=== PATIENT | female | born 1930 | race Caucasian/White ===

== ENCOUNTER 2017-04-16 13:32 | Outpatient (CLI) | payer MEDICARE ==
--- NOTE | 2017-04-18 16:10 | PET ---
NUCLEAR MEDICINE FDG PET CT WHOLE BODY: (Positron Emission Tomography) DATE: 04/16/17 HISTORY: 86-year-old female with left parotid tail mass, right thyroid nodule, effacement of left lateral pha ryngeal recess, and a right upper lobe pulmonary nodule. COMPARISON: Neck CT of 04/13/[address] of 04/13/17 at [facility]. TECHNIQUE: IV injection F-18 Fluorodeoxyglucose (FDG) dose: 12.8 mCi Whole body PET and attenuation-correction CT performed from skull base to proximal thighs. FINDINGS: SUV (standard uptake value) numbers given are maximum SUV's: There is no increased FDG localization in the left parotid tail, left nasopharynx at the fossa of Ro senmuller (now apparently representing apposition of adjacent mucosal surfaces and/or secretions), r ight thyroid nodule, or in the 1 cm pulmonary nodule in the right upper lobe. There is diffusely inc reased FDG uptake throughout the colon. There is no suspicious FDG localization in the abdominal and pelvic cavity otherwise, or anywhere in the chest or neck. There are significant bilateral pleural effusions, right greater than left. Cardiomegaly and pericardial effusion. Calcified gallstone. IMPRESSION: 1. No FDG-avid mass. 2. Diffusely increased FDG uptake throughout the entire colon. One possibility would be a diffuse c olitis. Clinical correlation is recommended. 3. Bilateral pleural effusions, right greater than left. 4. Cholelithiasis. 5. Cardiomegaly and small pericardial effusion. KORY R POS: [facility]
== END 2017-04-16 13:33 | disposition home or self-care (01) ==
LOC: PET 13:32
PROVIDERS: ATTEND Internal Medicine Medical Oncology
DX: C80.1 Malignant (primary) neoplasm, unspecified (principal); C77.0 Secondary and unspecified malignant neoplasm of lymph nodes of head, face and neck; C78.00 Secondary malignant neoplasm of unspecified lung
CPT/HCPCS: 78815; A9552

== ENCOUNTER 2017-06-09 12:55 | Outpatient (CLI) | payer MEDICARE ==
--- NOTE | 2017-06-09 15:09 | RAD ---
PA AND LATERAL VIEWS OF CHEST: Date: 06/09/17 HISTORY: Dyspnea. FINDINGS: The heart size is borderline. The aorta is tortuous. There is moderate size right pleural effusion wi th adjacent infiltrate/atelectatic change. No pulmonary edema, or pneumothoraces are seen. IMPRESSION: Right-sided pleural effusion. POS: [facility]
== END 2017-06-09 12:56 | disposition home or self-care (01) ==
LOC: RAD 12:55
PROVIDERS: ATTEND Internal Medicine Critical Care Medicine
DX: R06.00 Dyspnea, unspecified (principal); J90 Pleural effusion, not elsewhere classified
CPT/HCPCS: 71020

== ENCOUNTER 2017-06-23 11:24 | Outpatient (CLI) | payer MEDICARE ==
[2017-06-23 12:20] LABS: Anion Gap 13 mmol/L (10-20); BUN (Urea Nitrogen) 43 mg/dL (9.8-20.1); Calc. Creatinine Clearance 0 mL/min (70-130); Calcium 10.8 mg/dL (7.8-10.44); Carbon Dioxide 33 mmol/L (23-31); Chloride 90 mmol/L (98-107); Estimated GFR-MDRD 25
--- NOTE | 2017-06-23 12:43 | RAD ---
RADIOGRAPH CHEST 2 VIEWS: Date: 06-23-17 Time: 12:13 p.m. HISTORY: 86-year-old female with dyspnea and I50.23, chronic diastolic heart failure. COMPARISON: 06-09-17 FINDINGS: The previously demonstrated right pleural effusion which occupied approximately half of the volume of the right hemithoracic cavity, has decreased in size significantly and currently occupies approximat renny 10-20% volume of right hemithorax. There continues to be minimal blunting of the left posterior c ostophrenic angle. Cardiac size is near the upper limits of normal. No pulmonary vascular engorgement or pulmonary edema. No consolidation or pneumothorax. No widening of the mediastinum. IMPRESSION: 1. Significant interval decrease in volume of previously moderately large right pleural effusion, now small. 2. Probable tiny left pleural effusion remains. 3. No congestive heart failure, and no evidence of pneumothorax. KORY POS: [facility]
== END 2017-06-23 11:25 | disposition home or self-care (01) ==
LOC: RAD 11:24
PROVIDERS: ATTEND Internal Medicine Cardiovascular Disease
DX: J90 Pleural effusion, not elsewhere classified (principal); I50.33 Acute on chronic diastolic (congestive) heart failure; R93.1 Abnormal findings on diagnostic imaging of heart and coronary circulation
CPT/HCPCS: 71020

== ENCOUNTER 2017-07-11 11:10 | Outpatient (CLI) | payer MEDICARE ==
--- NOTE | 2017-07-11 12:24 | RAD ---
CHEST TWO VIEWS: History: Dyspnea. Comparison: 06-23-17 FINDINGS: Right lung pleural effusion has decreased in size. No focal airspace consolidation, pneumothorax, or effusion. Dense calcifications of the aorta. Mild lung hyperinflation. IMPRESSION: Slightly decreasing right lung pleural effusion. POS: [facility]
== END 2017-07-11 11:11 | disposition home or self-care (01) ==
LOC: RAD 11:10
PROVIDERS: ATTEND Internal Medicine Critical Care Medicine
DX: R06.00 Dyspnea, unspecified (principal); J90 Pleural effusion, not elsewhere classified
CPT/HCPCS: 71046

== ENCOUNTER 2017-08-18 10:56 | Outpatient (CLI) | payer MEDICARE | END 2017-08-18 10:57 | disposition home or self-care (01) | LOC: BICULT 10:56 | PROVIDERS: ATTEND Otolaryngology Plastic Surgery within the Head & Neck | DX: R22.1 Localized swelling, mass and lump, neck (principal); D49.0 Neoplasm of unspecified behavior of digestive system | CPT/HCPCS: 76536 ==

== ENCOUNTER 2017-10-03 08:04 | Inpatient (IN) | payer MEDICARE ==
[2017-10-03 09:18] LABS: #Basophils 0.1 thou/uL (0.0-0.2); #Lymphocytes 2.8 thou/uL (1.20-3.40); #Monocytes 0.5 thou/uL (0.11-0.59); #Neutrophils 5.2 thou/uL (1.40-6.50); %Eosinophils 0.5 % (0.0-10.0); %Lymphocytes 32.4 % (21.0-51.0); %Monocytes 6.2 % (0.0-10.0); %Neutrophils 59.8 % (42.0-75.0); Hemoglobin 11.9 g/dL (12.0-16.0); Mean Corpuscular HGB CONC 32.6 g/dL (32.0-36.0); Mean Platelet Volume 7.4 fL (7.4-10.4); Platelet Count 292 thou/uL (130-400); RBC Distribution Width 12.6 % (11.5-14.5); Red Blood Cell (RBC) Count 3.83 mill/uL (4.20-5.40); White Blood Cell (WBC) Count 8.7 thou/uL (4.8-10.8)
[2017-10-03] MEDS ORDERED: Iopamidol 370 76% 100 ML VIAL ONE (09:27)
[2017-10-03 09:30] LABS: ALT (SGPT) 20 U/L (8-55); AST (SGOT) 17 U/L (5-34); Alkaline Phosphatase 54 U/L (40-150); Anion Gap 13 mmol/L (10-20); BUN (Urea Nitrogen) 23 mg/dL (9.8-20.1); Bilirubin, Total 0.6 mg/dL (0.2-1.2); CK (CPK) 22 U/L (29-168); Calc. Creatinine Clearance 0 mL/min (70-130); Calcium 10.1 mg/dL (7.8-10.44); Carbon Dioxide 27 mmol/L (23-31); Chloride 100 mmol/L (98-107); Estimated GFR-MDRD 39; Globulin 3.7 g/dL (2.4-3.5); Glucose 107 mg/dL (83-110); Potassium 4.1 mmol/L (3.5-5.1); Protein, Total 7.7 g/dL (6.0-8.3); Sodium 136 mmol/L (136-145)
[2017-10-03 09:34] LABS: CKMB 1.3 ng/mL (0-6.6); Troponin I 0.106 ng/mL (< 0.028)
--- NOTE | 2017-10-03 10:04 | RAD ---
2 VIEW CHEST SERIES: Date: 10/03/17 HISTORY: Dyspnea. Reference made to 06/23/17. FINDINGS: There is prominent opacification of the mid inferior right chest. Right apical opacification present. There is enlargement of the cardiac silhouette and prominence of the pulmonary vasculature, more not able at the right suprahilar region. IMPRESSION: Extensive opacification of right hemithorax which may be on the basis of large volume pleural fluid w ith adjacent atelectasis and/or pneumonia. Recommend follow-up with pulmonary medicine consultation, as well as continued imaging follow-up. POS: [facility]
[2017-10-03] MEDS ORDERED: Furosemide 40 MG/4 ML VIAL ONE (10:27)
--- NOTE | 2017-10-03 10:40 | CT ---
CT PULMONARY ANGIO CHEST WITH CONTRAST: Date: 10/03/17 Multiple axial tomograms obtained through chest following arterial phase enhancement with multiplanar reconstruction and 3D postprocessing. INDICATION: Shortness of breath. Cough. History of recent diagnosis of lymphoma. Assess for pulmonary embolus. FINDINGS: The pulmonary arteries show normal opacification. No evidence of pulmonary embolus identified. There is a large right pleural effusion with compressive atelectasis involving the right lower lobe. There is a small left pleural effusion. There is a 1.0 cm nodule in the right mid lung, probably located in the right upper lobe. No evidence of mediastinal adenopathy. Thoracic aorta shows atherosclerotic change with no evidence of dissectio n. There are multiple small, low density nodules in the right lobe of the thyroid. The left lobe is abse nt. Images through the upper abdomen appear unremarkable. IMPRESSION: 1. No evidence of pulmonary embolus. 2. Large right pleural effusion with compressive atelectasis of the right lower lobe. Small left ple ural effusion. 3. 1.0 cm nodule in the right mid lung field. 4. Numerous small nodules in the right lobe of the thyroid. The left lobe is absent. POS: [facility]
--- NOTE | 2017-10-03 10:57 | CT ---
POSTCONTRAST SOFT TISSUE NECK CT: Date: 10/03/17 HISTORY: Evaluate mass. Shortness of breath. Cough. COMPARISON: None. CORRELATION: PET imaging dated 04/16/17. TECHNIQUE: Postcontrast soft tissue neck CT is performed in the axial plane. Reformatted images are submitted fo r interpretation. FINDINGS: Visualized brain parenchyma is unremarkable. Bilateral globes are unremarkable. There is adequate aer ation of the visualized sinuses and mastoid air cells. Aerodigestive tract is patent. No obvious muco rosaline abnormality. Limited evaluation of the oral cavity due to dental amalgam artifact. The midline fa tty raphe of the tongue is preserved. Epiglottis has a normal caliber. Preepiglottic fat is preserved . Symmetric attenuation of the sternocleidomastoid muscles. Submandibular glands are unremarkable. Mild heterogeneity involving both parotid glands. Isthmus and left thyroid lobe are not appreciated. Heterogeneous appearance of the right thyroid lobe . There is a slightly hyperdense mass posterior to the right thyroid lobe measuring 1.9 x 1.8 cm. There is a necrotic focus superficial and anterior to the left sternocleidomastoid muscle and just inferio r to the left parotid gland. A small focus of air is present. This mass measures 2.8 cm craniocaudal x 1.6 cm mediolateral x 2.0 cm anterior posterior. An infected fluid collection versus a necrotic lym ph node is favored. Mid induration of the adjacent soft tissues. Limited evaluation of the carotid arteries due to technique. There is evidence of atherosclerosis. Cervical spine vertebral body height is maintained. No fracture. Large right-sided pleural effusion. IMPRESSION: 1. Peripherally enhancing, centrally hypodense focus in the left neck with a small focus of air. Inf ected fluid collection versus a necrotic abscess are differential considerations. 2. Heterogeneous appearing right thyroid lobe. 3. Irregular hyperdense mass posterior to the right thyroid lobe of uncertain etiology. Correlation made with PET imaging dated 04/16/17 does demonstrate this mass which does not have FDG avidity. POS: [facility]
[2017-10-03] MEDS ORDERED: Ondansetron HCl/PF 4 MG/2 ML Vial IVP PRN (11:48)
[2017-10-03] MEDS ORDERED: Mag-Al 1200 mg/1200 mg/30 ML UDCUP PO PRN (11:48)
[2017-10-03] MEDS ORDERED: hydrALAZINE 20 MG/ML VIAL SLOW IVP PRN (11:48)
[2017-10-03] MEDS ORDERED: Ondansetron ODT 4 MG TAB PO PRN (11:48)
[2017-10-03] MEDS ORDERED: Milk Of Magnesia 30 ML UDCUP PO PRN (11:48)
[2017-10-03] MEDS ORDERED: Eucerin (Mineral Oil/Petrolatum,White) 30 gm Jar TOP PRN (11:48)
[2017-10-03] MEDS ORDERED: Loperamide HCl 2 MG CAP PO PRN (11:48)
[2017-10-03] MEDS ORDERED: Senokot 8.6 MG TAB PO PRN (11:48)
[2017-10-03] MEDS ORDERED: Sodium Chloride 0.65% Nasal 44 ML BOT EA NARE PRN (11:48)
[2017-10-03] MEDS ORDERED: Acetaminophen 325 MG TAB PO PRN (11:48)
[2017-10-03] MEDS ORDERED: HYDROcodone/Acetaminophen 5/325 mg Tablet PO PRN (11:48)
[2017-10-03] MEDS ORDERED: Chloraseptic Spray 180 ml Bottle PO PRN (11:48)
[2017-10-03] MEDS ORDERED: Nitroglycerin 0.4 MG TAB (25 Tab Bottle) SL PRN (11:48)
[2017-10-03] MEDS ORDERED: Artificial Tears 18 DROP/0.9 ML EA EYE PRN (11:48)
[2017-10-03] MEDS ORDERED: Loratadine 10 MG TAB PO PRN (11:48)
[2017-10-03] MEDS ORDERED: HumaLOG 300 UNITS/3 ML VIAL SC PRN ×2 (11:49)
[2017-10-03] MEDS ORDERED: Dextrose 5% in Water 1,000 ML IV PRN (11:49)
[2017-10-03] MEDS ORDERED: Dextrose 50% Abboject 50 ML SYRINGE SLOW IVP PRN (11:49)
[2017-10-03 12:45] LABS: Troponin I 0.112 ng/mL (< 0.028)
--- NOTE | 2017-10-03 14:07 | HP ---
PRIMARY CARE PHYSICIAN: Justin Rodriguez M.D. REASON FOR ADMISSION: Congestive heart failure exacerbation. HISTORY OF PRESENT ILLNESS: An 87-year-old female with a history of hypertension, diabetes type 2, a nd dyslipidemia who presented to emergency room with 3 day history of increasing shortness of breath. For the last 3 days, patient is feeling extremely short of breath. She is not able to sleep. She gets cough when she lies down. She has increasing bilateral lower extremity edema. She noticed puff iness of face today as well. She was having dry cough. She was feeling dyspnea on exertion. After walking few steps, she was getting out of breath. For the last 3 weeks, patient has decreasing appetite. Patient also has generalized weakness. Rodríguez ayala also has very poor appetite and she lost weight for last three weeks. Patient was having abdominal fullness as well as after eating she was feeling early satiety and she w as feeling abdominal distention, especially on the upper part of the upper abdomen. Patient had palpable lymph node and that is why Dr. Hamm did lymph node biopsy a week ago and it wa s diagnosed with lymphoma and the patient is supposed to see Dr. Edwards next week. The patient den ies any hemoptysis. She denies any pleuritic chest pain. She denies any UTI symptoms. She denies a ny constipation, diarrhea, melena or hematochezia. She was treated for UTI by primary care physician about 2 weeks ago. REVIEW OF SYSTEMS: The following complete review of systems was negative, unless otherwise mentioned in the HPI or below: Constitutional: Weight loss or gain, ability to conduct usual activities. Skin: Rash, itching. Eyes: Double vision, pain. ENT/Mouth: Nose bleeding, neck stiffness, pain, tenderness. Cardiovascular: Palpitations, dyspnea on exertion, orthopnea. Respiratory: Shortness of breath, wheezing, cough, hemoptysis, fever or night sweats. Gastrointestinal: Poor appetite, abdominal pain, heartburn, nausea, vomiting, constipation, or diarr hea. Genitourinary: Urgency, frequency, dysuria, nocturia. Musculoskeletal: Pain, swelling. Neurologic/Psychiatric: Anxiety, depression. Allergy/Immunologic: Skin rash, bleeding tendency. Please see my HPI for pertinent positive and negative. All other review of systems reviewed and nega tive except as mentioned in the HPI. ALLERGIES: No known drug allergy. CURRENT HOME MEDICATIONS: Aspirin 81 mg p.o. daily, Januvia 50 mg p.o. daily, metformin 1000 mg twic e daily, Zocor 20 mg p.o. daily, and Lasix 40 mg p.o. daily. PAST MEDICAL HISTORY: Diabetes type 2, hypertension, chronic congestive heart failure, recent diagno sis of lymphoma, Waldenstrom macroglobulinemia. PAST SURGICAL HISTORY: Hip replacement, retina surgery, hysterectomy. PAST PSYCHIATRIC HISTORY: Reviewed and negative. SOCIAL HISTORY: The patient lives with her daughter. No history of tobacco, alcohol or illicit drug abuse. FAMILY HISTORY: No strong family history of premature coronary artery disease, stroke or cancer. EMERGENCY ROOM COURSE: Patient is given Lasix 40 mg, IV fluid. PHYSICAL EXAMINATION: VITAL SIGNS: On arrival, blood pressure 177/84, pulse 91, respiratory rate 20, temperature 98.4, sat uration 94% on room air, and weight 58.9 kilograms. GENERAL: Patient is currently alert, awake, no acute distress. HEAD: Normocephalic, atraumatic. EYES: Pupils round, reactive to light. Extraocular muscle intact. ENT: Oropharynx within normal limits. Moist mucous membranes, no oral lesion, no pharyngeal erythem a, no exudate. NECK: Supple. Lymph node palpable on left lateral neck which is firm and tender to palpation, as we ll as biopsy site is clean and healthy. LUNGS: Air entry reduced at right side. Bilateral end expiratory wheezing heard. Bibasilar rales n oted. CARDIAC: S1, S2 appears regular. No murmur elicited, no gallop, no rub. ABDOMEN: Soft, hepatosplenomegaly. Bowel sounds present, nontender, nondistended. No organomegaly, no mass, no suprapubic tenderness. BACK: Examination unremarkable, no CVA tenderness. EXTREMITIES: Upper extremity; passive movement of all joints are normal. Lower extremity; bilateral +2 pitting edema noted. SKIN: No skin rash. HEMATOLOGICAL SYSTEM: No lymphadenopathy. PSYCHIATRIC: Normal affect. NEUROLOGIC: Nonfocal examination. IMAGING DATA AND SIGNIFICANT LABORATORY DATA: 1. EKG showing normal sinus rhythm, low voltage QRS complex, nonspecific ST-T changes with left axis deviation. 2. Chest x-ray showing large right pleural effusion and atelectasis. 3. CT angio negative for pulmonary embolism, confirmed right pleural effusion with atelectasis, smal l left pleural effusion, 1 cm nodule in right mid lung. Multiple small nodules in the right lobe of thyroid. CT cervical spine showing solid enhancing mass posterior to left thyroid lobe with necrotic focus superficial and anterior to left sternocleidomastoid muscle and inferior to left parotid gland . Necrotic lymph node is favored. 4. CBC: WBC 8.7, hemoglobin 11.9, platelet 292. 5. BMP: Sodium 136, potassium 4.1, chloride 100, carbon dioxide 27, anion gap 13, BUN 23, creatinin e 1.31, glucose 107, calcium 10.1, lactic acid 1.0. 6. LFT: AST 17, ALT 20, alkaline phosphatase 54, albumin 4.0. CK 22, CK-MB 1.3, troponin I 0.106 a nd then 0.112. BNP 2833. ASSESSMENT AND PLAN/IMPRESSION: 1. Acute exacerbation of congestive heart failure, EF is not known. The patient's tapeman is girish Garcia and now Dr. Johnson. He did echocardiography in his office. At this point, we do n ot have any echocardiography in our hospital system. We will obtain new echocardiography to assess e jection fraction and other structural abnormality. We will check magnesium, uric acid, TSH as a part of workup. We will continue to treat with Lasix 40 mg IV b.i.d. We will replace electrolytes accor dingly. We will monitor daily weight, input and output chart. Heart failure education given, fluid restriction 1500 mL per day, DuoNeb q.6 hourly p.r.n., cardiac rehabilitation inpatient as well as ou tpatient. 2. Large right pleural effusion, most likely related with congestive heart failure, but underlying l ymphoma induced pleural effusion is also a possibility. We will obtain pulmonary consult to decide a bout thoracentesis. 3. New diagnosis of lymphoma. Patient had lymph node in the neck. She has previous history of macr oglobulinemia and she is at high risk for lymphoma as well and biopsy proven lymphoma. We will consu lt Dr. Edwards for treatment plan options. 4. Elevated troponin, likely due to demand ischemia. We will do serial cardiac enzymes x3. The pat ient will be kept on aspirin 81 mg p.o. daily. If patient does have systolic heart failure, then we will consult Cardiology as well. We will continue Zocor 20 mg p.o. at bedtime. 5. Diabetes type 2. Continue metformin 1000 mg twice daily, Januvia 100 mg p.o. daily and insulin a s per sliding scale per protocol. Diabetic diet will be given. 6. Chronic kidney disease stage 3. We will monitor renal function. Avoid nephrotoxin agents. 7. Anemia, normocytic, normochromic. We will continue ferrous sulfate 325 mg p.o. daily and multivi tamin 1 tablet p.o. daily. 8. Dyslipidemia. Continue Zocor 20 mg p.o. at bedtime. 9. Deep venous thrombosis prophylaxis, Lovenox 40 mg subcu daily. 10. Gastrointestinal prophylaxis, Pepcid 20 mg p.o. b.i.d. 11. Code status. I spoke with the patient and patient's family member, patient is FULL CODE and aspen ruiz's daughter is surrogate decision maker. Disposition plan based on clinical course. We are expecting patient's stay in hospital more than 2 m idnights. Plan of care discussed with the patient and family member at bedside in the emergency room in detail.
--- NOTE | 2017-10-03 16:16 | RAD ---
CHEST ONE VIEW: HISTORY: Status post thoracentesis. COMPARISON: 10/03/2017 at 9:43 a.m. FINDINGS: Improved aeration to the right lung. Residual pleural and parenchymal changes do remain in the right lung base. Stable blunting of the left lung base. Stable hyperinflation. Stable configuration of the cardiac silhouette. No pneumothorax. IMPRESSION: Improved aeration compatible with the recent right-sided thoracentesis. No pneumothorax. POS: [facility]
[2017-10-03 16:17] LABS: BF Color Yellow; Body Fluid Source THORACENTESIS FLD; Tube # EDTA
[2017-10-03 16:18] LABS: BF RBC Count - Manual 50 /cumm; BF WBC/Nonhematics Ct. - Manua 795 /cumm
[2017-10-03 16:21] LABS: Clarity Clear (Clear)
[2017-10-03 16:24] LABS: Pleural Fluid, Protein 2.3 g/dL
[2017-10-03 16:57] LABS: BF Segmented Neutrophils 5 %; Cell Count Non Hematic 48 %; Lymphocytes 47 %
[2017-10-03] MEDS ORDERED: metFORMIN 500 MG TAB PO SCH (17:00)
[2017-10-03] MEDS: Furosemide 40 MG/4 ML VIAL SLOW IVP SCH (18:22)
[2017-10-03 19:22] LABS: Bilirubin Negative (Negative); Blood, Urine Negative (Negative); Clarity CLEAR (Clear); Glucose, Urine (Dipstick) Negative (Negative); Leukocyte Negative (Negative); Nitrite Negative (Negative); Protein, Urine (Dipstick) Negative (Neg-Trace); Specific Gravity, Urine 1.017 (1.002-1.036); Urobilinogen 0.2 mg/dL (0.2-1.0)
[2017-10-03 19:27] LABS: Bacteria/HPF None Seen HPF (None Seen); Hyaline Casts/LPF NONE SEEN LPF (0-3 Hyaline); RBC/HPF None Seen HPF (0-3); Squamous Epithelial 0-3 HPF (0-3); WBC/HPF None Seen HPF (0-3)
--- NOTE | 2017-10-03 19:52 | OP ---
PROCEDURE: Thoracentesis. INDICATION: Pleural effusion, dyspnea. DESCRIPTION OF PROCEDURE: After consent from the family, the right posterior thorax was cleaned with chlorhexidine. 1% Xylocaine was infiltrated into the ninth midscapular area. The pleural cavity wa s entered in, which was felt to be somewhat thick. 20 mL of slightly pale yellow fluid was removed w ithout difficulty using 8-Serbian catheter. A total of 1600 mL was removed without difficulty. The p atient tolerated the procedure well. Fluid was sent for appropriate studies including cytology and c ulture.
--- NOTE | 2017-10-03 20:36 | CON ---
DATE OF CONSULTATION: 10/03/2017 REASON FOR CONSULTATION: Waldenstrom macroglobulinemia. HISTORY OF PRESENT ILLNESS: Ms. Carson is a pleasant 87-year-old female who is followed by Dr. Dulce Maria suazo for Waldenstrom's macroglobulinemia, IgM lambda. She has had stable disease for quite some time. She presented to the emergency room with increasing shortness of breath. She has a history of heart failure and is on diuretics managed by Dr. Johnson. She had a large pleural effusion and has had a t horacentesis in the emergency room by Dr. Radford with approximately a liter and half of fluid removed. Over the past few weeks, her shortness of breath has increased. She has lost about 10-15 pounds. S he had a left neck mass that has been followed by Dr. Hamm. 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 The patient is scheduled to see Dr. Edwards next week. We were asked to see the patient while she is here for a possible treatment options. PAST MEDICAL HISTORY: 1. Waldenstrom's macroglobulinemia. 2. Hypertension. 3. Diabetes. 4. Congestive heart failure. PAST SURGICAL HISTORY: 1. Hip replacement. 2. Retina surgery. 3. Hysterectomy. ALLERGIES: No known drug allergies. HOME MEDICATIONS: 1. Aspirin 81 mg daily. 2. Benicar 20/12.5 daily. 3. CoQ10 daily. 4. Fish oil daily. 5. Lasix 20 mg daily. 6. Januvia 50 mg daily. 7. Metformin 500 mg b.i.d. 8. Simvastatin daily. FAMILY HISTORY: Mother had brain cancer. Father had bone cancer. She has a son with myelodysplasti c syndrome. SOCIAL HISTORY: , has 4 children, lives with her daughter. No alcohol, tobacco or illicit dr ug use. REVIEW OF SYSTEMS: CONSTITUTIONAL: No fever, chills, night sweats. Positive for recent weight loss. EYES: No blurred or double vision. ENT: No pain, hoarseness, sore throat, or dysphagia. CARDIOVASCULAR: No chest pain, palpitations or syncope. RESPIRATORY: Positive for shortness of breath and dyspnea on exertion. GASTROINTESTINAL: No nausea, vomiting, diarrhea, constipation or abdominal pain. Positive for lack of appetite. GENITOURINARY: No dysuria or hematuria. MUSCULOSKELETAL: Positive for back pain. SKIN: No rash or pruritus. HEMATOLOGIC: Denies bleeding, bruising or clotting. NEUROLOGIC: Positive for weakness. No headache, numbness, tingling or seizure activity. PSYCHIATRIC: No anxiety or depression. PHYSICAL EXAMINATION: VITAL SIGNS: Per ER record. GENERAL: Well-developed, well-nourished female, in no acute distress. HEENT: Normocephalic, atraumatic. Pupils equal and reactive to light. NECK: She has an incision on her left cervical area is healing well. CARDIOVASCULAR: Regular rate and rhythm. LUNGS: Clear to auscultation. ABDOMEN: Mildly tender to palpation in the mid epigastric area. EXTREMITIES: She has 1+ edema bilateral lower extremities. SKIN: No rash. HEMATOLOGIC: No petechia or purpura. NEUROLOGICAL: Nonfocal. PSYCHIATRIC: The patient is alert and oriented and appropriate. PERTINENT LABORATORY AND X-RAYS: Current WBCs are 8.7, hemoglobin 11.9, hematocrit 36.4, platelet co unt is 292,000, 60% neutrophils, 32% lymphocytes. Sodium is 136, potassium 4.1, chloride 100, CO2 is 27, BUN is 23, creatinine is 1.31. Lactic acid is 1, calcium 10.1, bilirubin is 0.6, AST 17, ALT is 20, alkaline phosphatase is 54. Creatinine kinase is 22, troponin is 0.112. BNP is 2833. Serum to eve protein is 7.7, albumin 4.0, globulin 3.7. Chest x-ray showed a right pleural effusion. Soft ti ssue neck CT showed the regular hyperdense mass posterior to the right thyroid lobe. CT angio was ne gative for pulmonary embolism. IMPRESSION: 1. Acute on chronic heart failure. 2. Large right pleural effusion. 3. Recent diagnosis of MALT lymphoma. DISCUSSION: The patient's congestive heart failure is managed by Dr. Johnson, who will be seeing the patient. Dr. Radford has already performed a thoracentesis with removal of a large volume of fluid. Th e patient is feeling much better and is able to take a deep breath. We will have General Surgery per form an abdominal fat pad biopsy to rule out general amyloidosis and then further treatment options f or her lymphoma will be discussed in the outpatient setting. Thank you for the consult.
[2017-10-03] MEDS: Diabetic Tussin 200 MG/10 ML UDCUP PO PRN (21:04)
[2017-10-03] MEDS: Simvastatin 20 MG TAB PO SCH (21:05)
[2017-10-03] MEDS: Zolpidem Tartrate 5 MG TAB PO PRN (21:05)
[2017-10-03] MEDS: Famotidine 20 MG TAB PO SCH (21:06)
[2017-10-04] MEDS ORDERED: Lidocaine 1% w/Epinephrine 1:100K 20 ML VIAL FS SCH (02:45)
[2017-10-04 05:28] LABS: #Basophils 0.1 thou/uL (0.0-0.2); #Lymphocytes 2.9 thou/uL (1.20-3.40); #Monocytes 0.6 thou/uL (0.11-0.59); %Basophils 0.5 % (0.0-1.0); %Eosinophils 0.4 % (0.0-10.0); %Lymphocytes 24.9 % (21.0-51.0); %Monocytes 5.2 % (0.0-10.0); Hemoglobin 11.7 g/dL (12.0-16.0); Mean Corpuscular HGB CONC 32.9 g/dL (32.0-36.0); Mean Corpuscular Hemoglobin 31.4 pg (27.0-31.0); Mean Corpuscular Volume 95.4 fl (81.0-99.0); Mean Platelet Volume 7.6 fL (7.4-10.4); Platelet Count 258 thou/uL (130-400); RBC Distribution Width 12.6 % (11.5-14.5); Red Blood Cell (RBC) Count 3.74 mill/uL (4.20-5.40); White Blood Cell (WBC) Count 11.6 thou/uL (4.8-10.8)
[2017-10-04] MEDS: Furosemide 40 MG/4 ML VIAL SLOW IVP SCH ×2 (05:48→16:26)
[2017-10-04 05:51] LABS: ALT (SGPT) 14 U/L (8-55); AST (SGOT) 15 U/L (5-34); Albumin 3.1 g/dL (3.4-4.8); Alkaline Phosphatase 45 U/L (40-150); Anion Gap 14 mmol/L (10-20); BUN (Urea Nitrogen) 22 mg/dL (9.8-20.1); Bilirubin, Total 0.6 mg/dL (0.2-1.2); Calc. Creatinine Clearance 36 mL/min (70-130); Calcium 9.2 mg/dL (7.8-10.44); Carbon Dioxide 21 mmol/L (23-31); Chloride 104 mmol/L (98-107); Estimated GFR-MDRD 49; Globulin 3.3 g/dL (2.4-3.5); Glucose 87 mg/dL (83-110); Magnesium 1.4 mg/dL (1.6-2.6); Protein, Total 6.4 g/dL (6.0-8.3); Sodium 135 mmol/L (136-145); Uric Acid 7.8 mg/dL (2.6-6.0)
[2017-10-04] MEDS: Diabetic Tussin 200 MG/10 ML UDCUP PO PRN (05:54)
[2017-10-04 05:59] VITALS: BMI 23.6
[2017-10-04] MEDS ORDERED: VIT E ACET PO SCH (09:00)
[2017-10-04] MEDS ORDERED: Non-Formulary Item 1 EACH (Olmesartan Medoxomil [Benicar] 40 MG) PO SCH (09:00)
[2017-10-04] MEDS ORDERED: UBIDECARENONE PO SCH (09:00)
[2017-10-04] MEDS ORDERED: Non-Formulary Item 1 EACH (Cholecalciferol (Vitamin D3) [Vitamin D3] 5,000 UNIT) PO SCH (09:00)
[2017-10-04] MEDS: Fish Oil 1,000 MG CAP PO SCH (09:10)
[2017-10-04] MEDS: Ubidecarenone 50 MG CAP PO SCH (09:11)
[2017-10-04] MEDS: Multivitamin W/ Minerals 1 TAB PO SCH (09:12)
[2017-10-04] MEDS: Alogliptin 25 MG TAB PO SCH (09:13)
[2017-10-04] MEDS: Ferrous Sulfate 325 MG TAB PO SCH (09:13)
[2017-10-04] MEDS: metFORMIN 500 MG TAB PO SCH ×2 (09:13→16:25)
[2017-10-04] MEDS: Famotidine 20 MG TAB PO SCH ×2 (09:15→20:54)
--- NOTE | 2017-10-04 09:45 | CON ---
DATE OF CONSULTATION: 10/03/2017 HISTORY OF PRESENT ILLNESS: Ms. Carson is an 87-year-old female, who has seen Dr. Mc in the past, presents with shortness of breath, orthopnea, PND, lower extremity swelling. This has been going for at least a week. About 2 weeks ago, she had lymph node removed from the left neck, which was felt t o be a lymphoma. She is due to see Oncology. She had previous small right-sided pleural effusion, which was treated with diuretics to which she go t better. Now, the x-ray shows pleural effusion two-thirds of way up to the chest on the right side. She is clearly having difficulty breathing. Denies any fever, chills, sweats or hemoptysis. According to family members, she has had difficulty turning over in the bed. PAST MEDICAL HISTORY: Pertinent for diabetes, hypertension, lymphoma, CHF, diastolic dysfunction. PAST SURGICAL HISTORY: Previous surgery including hip surgery and hysterectomy. SOCIAL AND FAMILY HISTORY: No alcohol or tobacco abuse. HOME MEDICATIONS: Includes aspirin, Januvia 50, metformin 500 two tablets twice a day, simvastatin 2 0, Lasix 40 one a day. Her Benicar was discontinued, I am told. She is seeing Dr. Johnson. REVIEW OF SYSTEMS: Ten point negative. PHYSICAL EXAMINATION: GENERAL: Mild distress. VITAL SIGNS: Sats are 95% on supplemental oxygen, blood pressure 140/88, pulse rate of 18. CHEST: Decreased breath sounds in the right lung, two-thirds left lung crackles. CARDIAC: Normal S1, S2. No gallops. ABDOMEN: Soft. No masses. LABORATORY AND X-RAY FINDINGS: Chest x-ray shows massive right pleural effusion. White count 8000, H and H 9 and 36, platelet count 292, creatinine 1.3. BNP is 2833. IMPRESSION: 1. Massive pleural effusion, probably secondary to systolic versus diastolic dysfunction. 2. Renal failure. 3. Diabetes. 4. Recent lymphoma diagnosed. PLAN: Thoracentesis was performed, I will notify Dr. Mc. Continue diuretics and supportive care. I placed a Pearce. Consultation note, 70 minutes of which 50% of the time was spent in direct patient care.
--- NOTE | 2017-10-04 13:12 | PDOC.PN ---
- Subjective Encounter Start Date: 10/04/17 Encounter Start Time: 11:15 -: old records requested/rev Patient seen and examined. No new complaints. No overnight events feels better, no chest pain, less dyspnea - Objective Resuscitation Status: Resuscitation Status FULL:Full Resuscitation Vital Signs & Weight: Vital Signs (12 hours) Temp Pulse Resp BP Pulse Ox 10/04/17 11:40 99 F 94 18 119/64 95 10/04/17 08:00 98.1 F 100 18 122/60 98 10/04/17 04:00 98 F 93 20 121/63 95 Weight Weight 142 lb I&O: 10/03/17 10/04/17 10/05/17 06:59 06:59 06:59 Intake Total 480 Output Total 700 Balance -220 Result Diagrams: 10/04/17 04:24 10/04/17 04:24 Additional Labs: Accuchecks 10/04/17 10/04/17 10/03/17 10:46 05:31 20:33 POC Glucose 146 H 101 128 H 10/03/17 17:40 POC Glucose 126 H Radiology Reviewed by me: Yes EKG Reviewed by me: Yes Phys Exam - Physical Examination Constitutional: NAD HEENT: PERRLA, moist MMs, sclera anicteric Neck: no JVD, supple Respiratory: no wheezing, no rhonchi basal rales, reduced air entry right base Cardiovascular: RRR, no significant murmur, no rub Gastrointestinal: soft, non-tender, no distention, positive bowel sounds Musculoskeletal: pulses present, edema present Neurological: non-focal, normal sensation, moves all 4 limbs Psychiatric: normal affect, A&O x 3 Skin: no rash, normal turgor Dx/Plan (1) Acute exacerbation of CHF (congestive heart failure) Code(s): I50.9 - HEART FAILURE, UNSPECIFIED Status: Acute Qualifiers: Heart failure type: unspecified Qualified Code(s): I50.9 - Heart failure, unspecified (2) Demand ischemia of myocardium Code(s): I24.8 - OTHER FORMS OF ACUTE ISCHEMIC HEART DISEASE Status: Acute (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 - EXTRNOD MRGNL ZN B-CELL LYMPH OF [place] LYMPHOID TISS Status: Acute Comment: recent new diagnosis (4) Pleural effusion, right Code(s): J90 - PLEURAL EFFUSION, NOT ELSEWHERE CLASSIFIED Status: Acute Comment: s/p thoracentesis (5) CKD (chronic kidney disease) stage 3, GFR 30-59 ml/min Code(s): N18.3 - CHRONIC KIDNEY DISEASE, STAGE 3 (MODERATE) Status: Chronic (6) Diabetes type 2, controlled Code(s): E11.9 - TYPE 2 DIABETES MELLITUS WITHOUT COMPLICATIONS Status: Chronic (7) Dyslipidemia Code(s): E78.5 - HYPERLIPIDEMIA, UNSPECIFIED Status: Chronic (8) Hypertension Code(s): I10 - ESSENTIAL (PRIMARY) HYPERTENSION Status: Chronic (9) Waldenstrom macroglobulinemia Code(s): C88.0 - W[place] MACROGLOBULINEMIA Status: Chronic - Plan cont current plan of care, plan discussed w/ family, mandujano catheter, DVT proph w /lovenox * will repeat chest xray tomorrow * continue iv lasix * cardiology consult * echo today * abdominal fat pad biopsy * pulmonary and oncology recommendation noted * discussed with family . Review of Systems - Review of Systems Eyes: negative: Pain, Vision Change, Conjunctivae Inflammation, Eyelid Inflammation, Redness, Other ENT: negative: Ear Pain, Ear Discharge, Nose Pain, Nose Discharge, Nose Congestion, Mouth Pain, Mouth Swelling, Throat Pain, Throat Swelling, Other Respiratory: Cough, Shortness of Breath, SOB with Excertion. negative: Dry, Hemoptysis, Pleuritic Pain, Sputum, Wheezing Cardiovascular: negative: chest pain, palpitations, orthopnea, paroxysmal nocturnal dyspnea, edema, light headedness, other Gastrointestinal: negative: Nausea, Vomiting, Abdominal Pain, Diarrhea, Constipation, Melena, Hematochezia, Other Genitourinary: negative: Dysuria, Frequency, Incontinence, Hematuria, Retention , Other Musculoskeletal: negative: Neck Pain, Shoulder Pain, Arm Pain, Back Pain, Hand Pain, Leg Pain, Foot Pain, Other Skin: negative: Rash, Lesions, Nikhil, Bruising, Other - Medications/Allergies Allergies/Adverse Reactions: Allergies Allergy/AdvReac Type Severity Reaction Status Date / Time codeine Allergy Verified 10/03/17 21:12 Medications: Current Medications Acetaminophen (Tylenol) 650 mg PO Q4H PRN PRN Reason: Headache/Fever or Pain Hydrocodone Bitart/Acetaminophen ([place] 5/325) 1 tab PO Q4H PRN PRN Reason: Moderate Pain (4-6) Al Hydroxide/Mg Hydroxide (Maalox) 30 ml PO Q6H PRN PRN Reason: Heartburn or Indigestion Albuterol/Ipratropium (Duoneb) 3 ml NEB [id number] PRN PRN Reason: SOB &/or Wheezing Alogliptin Benzoate (Alogliptin) 12.5 mg PO DAILY [facility] Last Admin: 10/04/17 09:13 Dose: 12.5 mg Artificial Tears (Tears Naturale) 0 drop EA EYE PRN PRN PRN Reason: Dry Eyes Aspirin (Aspirin Chewable) 81 mg PO DAILY [facility] Cholecalciferol (Vitamin D3) 5,000 units PO DAILY [facility] Last Admin: 10/04/17 09:15 Dose: 5,000 units Coenzyme Q10 (Coenzyme Q10) 100 mg PO DAILY [facility] Last Admin: 10/04/17 09:11 Dose: 100 mg Dextrose/Water (Dextrose 50%) 25 gm SLOW IVP PRN PRN PRN Reason: Hypoglycemia Enoxaparin Sodium (Lovenox) 40 mg SC 0900 [facility] Famotidine (Pepcid) 20 mg PO BID [facility] Last Admin: 10/04/17 09:15 Dose: 20 mg Ferrous Sulfate (Feosol) 325 mg PO QAM-[facility] Last Admin: 10/04/17 09:13 Dose: 325 mg Fish Oil (Fish Oil) 1,000 mg PO DAILY [facility] Last Admin: 10/04/17 09:10 Dose: 1,000 mg Furosemide (Lasix) 40 mg SLOW IVP 0600,1400 [facility] Last Admin: 10/04/17 05:48 Dose: 40 mg Glucagon (Glucagon) 1 mg IM PRN PRN PRN Reason: Hypoglycemia Guaifenesin (Robitussin Sf) 200 mg PO Q4H PRN PRN Reason: Cough Last Admin: 10/04/17 05:54 Dose: 200 mg Hydralazine HCl (Apresoline) 10 mg SLOW IVP Q4H PRN PRN Reason: Systolic BP > 180 Dextrose/Water (D5w) 1,000 mls @ 0 mls/hr IV .Q0M PRN; As Directed PRN Reason: Hypoglycemia Insulin Human Lispro (Humalog) 0 units SC .MODERATE SLIDING SC PRN PRN Reason: Moderate Correctional Scale Insulin Human Lispro (Humalog) 0 units SC .BEDTIME SLIDING SC PRN PRN Reason: Bedtime Correctional Scale Iron/Minerals/Multivitamins (Theragran M) 1 tab PO DAILY [facility] Last Admin: 10/04/17 09:12 Dose: 1 tab Loperamide HCl (Imodium) 2 mg PO PRN PRN PRN Reason: Diarrhea/Loose Stools Loratadine (Claritin) 10 mg PO DAILYPRN PRN PRN Reason: Sinus Symptoms Magnesium Hydroxide (Milk Of Magnesium) 30 ml PO DAILYPRN PRN PRN Reason: Constipation Metformin HCl (Glucophage) 500 mg PO BID-[facility] Last Admin: 10/04/17 09:13 Dose: 500 mg Metoprolol Succinate (Toprol Xl) 25 mg PO DAILY [facility] Last Admin: 10/04/17 10:05 Dose: Not Given Mineral Oil/White Petrolatum (Eucerin Cream) 0 gm TOP BIDPRN PRN PRN Reason: Dry Skin Nitroglycerin (Nitrostat) 0.4 mg SL Q5MIN PRN PRN Reason: Chest Pain Olmesartan (Benicar) 40 mg PO DAILY [facility] Last Admin: 10/04/17 09:12 Dose: 40 mg Ondansetron HCl (Zofran Odt) 4 mg PO Q6H PRN PRN Reason: Nausea/Vomiting Ondansetron HCl (Zofran) 4 mg IVP Q6H PRN PRN Reason: Nausea/Vomiting Phenol (Chloraseptic [place] 180 Ml Bot) 0 ml PO PRN PRN PRN Reason: Sore Throat Senna (Senokot) 2 tab PO HSPRN PRN PRN Reason: Constipation Simvastatin (Zocor) 20 mg PO [facility] Last Admin: 10/03/17 21:05 Dose: 20 mg Sodium Chloride ([place] Nasal [place] 0.65%) 0 ml EA NARE QIDPRN PRN PRN Reason: Nasal Congestion Sodium Chloride (Flush - Normal Saline) 10 ml IVF Q12HR [facility] Last Admin: 10/04/17 09:15 Dose: 10 ml Sodium Chloride (Flush - Normal Saline) 10 ml IVF PRN PRN PRN Reason: Saline Flush Zolpidem Tartrate (Ambien) 5 mg PO HSPRN PRN PRN Reason: Insomnia Last Admin: 10/03/17 21:05 Dose: 5 mg
[2017-10-04] MEDS: Enoxaparin Sodium 40 MG/0.4 ML SYRINGE SC SCH (16:25)
[2017-10-04] MEDS: Zolpidem Tartrate 5 MG TAB PO PRN (20:54)
[2017-10-04] MEDS: Simvastatin 20 MG TAB PO SCH (20:55)
--- NOTE | 2017-10-04 21:30 | OP ---
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 PROCEDURE: Abdominal fat pad, core 14 gauge biopsy. SURGEON: Dr. Duong Arevalo. ANESTHESIA: 1% Xylocaine with epinephrine. PROCEDURE IN DETAIL: At the patient's bedside after informed consent, local anesthetic was infiltrat ed into the skin and subcutaneous tissue after ChloraPrep. Skin wheal raised in local anesthetic wit h a 25 gauge and infiltrated into skin and subcutaneous tissue using core biopsy gun 14 gauge, a sing le puncture site was made. Multiple biopsies obtained through the same port site and submitted in fo alin to pathology. Patient tolerated the procedure well. Bandage applied.
--- NOTE | 2017-10-04 21:31 | PRG ---
DATE OF SERVICE: 10/04/2017 SUBJECTIVE: Ms. Carson's pleural fluid was transudative. Cytology is pending. She had no complaints . She says she feels much better than she felt yesterday. PHYSICAL EXAMINATION: VITAL SIGNS: She is afebrile, heart rate 79, respiratory rate is 18, oximetry is 97 on 2 liters, blo od pressure 119/56. LUNGS: Clear. HEART: Regular rhythm. ABDOMEN: Soft. She says she is normally followed by Dr. Johnson. She still has fine crackles in the left base, but no exam findings suggestive of a large recurrent ef fusion. IMPRESSION: 1. Lymphoma. 2. Pleural effusions, most likely of cardiac origin. 3. History of hypertension. 4. History of diabetes. PLAN: Cardiology input. Monitor intake and output. Diuresis as tolerated. Monitor renal function. Her creatinine is 1.07. Today, her hemoglobin is 11.7 grams, which is stable compared to yesterday . We may have to follow the other physicians.
[2017-10-05] MEDS: Furosemide 40 MG/4 ML VIAL SLOW IVP SCH (05:26)
[2017-10-05 07:46] LABS: #Lymphocytes 2.3 thou/uL (1.20-3.40); #Monocytes 0.6 thou/uL (0.11-0.59); #Neutrophils 5.3 thou/uL (1.40-6.50); %Basophils 0.6 % (0.0-1.0); %Eosinophils 0.5 % (0.0-10.0); %Lymphocytes 28.3 % (21.0-51.0); %Monocytes 6.8 % (0.0-10.0); %Neutrophils 63.9 % (42.0-75.0); Hemoglobin 11.2 g/dL (12.0-16.0); Mean Corpuscular Hemoglobin 31.8 pg (27.0-31.0); Mean Corpuscular Volume 96.3 fl (81.0-99.0); Mean Platelet Volume 7.1 fL (7.4-10.4); Platelet Count 266 thou/uL (130-400); RBC Distribution Width 12.4 % (11.5-14.5); Red Blood Cell (RBC) Count 3.54 mill/uL (4.20-5.40); White Blood Cell (WBC) Count 8.3 thou/uL (4.8-10.8)
[2017-10-05 07:57] LABS: Anion Gap 14 mmol/L (10-20); BUN (Urea Nitrogen) 22 mg/dL (9.8-20.1); Calc. Creatinine Clearance 32 mL/min (70-130); Calcium 9.4 mg/dL (7.8-10.44); Carbon Dioxide 28 mmol/L (23-31); Chloride 96 mmol/L (98-107); Estimated GFR-MDRD 39; Glucose 92 mg/dL (83-110); Magnesium 1.5 mg/dL (1.6-2.6); Potassium 3.9 mmol/L (3.5-5.1); Sodium 134 mmol/L (136-145)
[2017-10-05] MEDS: Fish Oil 1,000 MG CAP PO SCH (08:57)
[2017-10-05] MEDS: Multivitamin W/ Minerals 1 TAB PO SCH (08:57)
[2017-10-05] MEDS: Ubidecarenone 50 MG CAP PO SCH (08:57)
[2017-10-05] MEDS: Ferrous Sulfate 325 MG TAB PO SCH (08:58)
[2017-10-05] MEDS: Alogliptin 25 MG TAB PO SCH (08:58)
[2017-10-05] MEDS: Famotidine 20 MG TAB PO SCH (08:59)
[2017-10-05] MEDS: Enoxaparin Sodium 40 MG/0.4 ML SYRINGE SC SCH (08:59)
[2017-10-05] MEDS: metFORMIN 500 MG TAB PO SCH ×2 (08:59→18:00)
--- NOTE | 2017-10-05 10:01 | PDOC.PN ---
- Subjective Encounter Start Date: 10/05/17 Encounter Start Time: 07:20 Patient seen and examined. No new complaints. No overnight events feels better, less dyspnea - Objective Resuscitation Status: Resuscitation Status FULL:Full Resuscitation MAR Reviewed: Yes Vital Signs & Weight: Vital Signs (12 hours) Temp Pulse Resp BP Pulse Ox 10/05/17 04:00 98.0 F 90 16 123/57 L 94 L 10/04/17 23:48 97.3 F L 85 18 118/58 L 94 L Weight Weight 143 lb 1.6 oz I&O: 10/04/17 10/05/17 10/06/17 06:59 06:59 06:59 Intake Total 480 580 Output Total 700 1650 Balance -220 -1070 Result Diagrams: 10/05/17 07:37 10/05/17 07:37 Additional Labs: Accuchecks 10/05/17 10/04/17 10/04/17 05:38 20:34 16:43 POC Glucose 92 106 103 10/04/17 10:46 POC Glucose 146 H EKG Reviewed by me: Yes Phys Exam - Physical Examination Constitutional: NAD HEENT: PERRLA, moist MMs, sclera anicteric Neck: no JVD, supple Respiratory: no wheezing, no rales, no rhonchi reduced air at base, no rales Cardiovascular: RRR, no significant murmur, no rub Gastrointestinal: soft, non-tender, no distention, positive bowel sounds Musculoskeletal: no edema, pulses present Neurological: non-focal, normal sensation, moves all 4 limbs Lymphatic: no nodes Psychiatric: normal affect, A&O x 3 Skin: no rash, normal turgor Dx/Plan (1) Acute exacerbation of CHF (congestive heart failure) Code(s): I50.9 - HEART FAILURE, UNSPECIFIED Status: Acute Qualifiers: Heart failure type: unspecified Qualified Code(s): I50.9 - Heart failure, unspecified (2) Demand ischemia of myocardium Code(s): I24.8 - OTHER FORMS OF ACUTE ISCHEMIC HEART DISEASE Status: Acute (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 - EXTRNOD MRGNL ZN B-CELL LYMPH OF [place] LYMPHOID TISS Status: Acute Comment: recent new diagnosis (4) Pleural effusion, right Code(s): J90 - PLEURAL EFFUSION, NOT ELSEWHERE CLASSIFIED Status: Acute Comment: s/p thoracentesis (5) CKD (chronic kidney disease) stage 3, GFR 30-59 ml/min Code(s): N18.3 - CHRONIC KIDNEY DISEASE, STAGE 3 (MODERATE) Status: Chronic (6) Diabetes type 2, controlled Code(s): E11.9 - TYPE 2 DIABETES MELLITUS WITHOUT COMPLICATIONS Status: Chronic (7) Dyslipidemia Code(s): E78.5 - HYPERLIPIDEMIA, UNSPECIFIED Status: Chronic (8) Hypertension Code(s): I10 - ESSENTIAL (PRIMARY) HYPERTENSION Status: Chronic (9) Wal[place]strom macroglobulinemia Code(s): C88.0 - [place] MACROGLOBULINEMIA Status: Chronic (10) Acute kidney injury Code(s): N17.9 - ACUTE KIDNEY FAILURE, UNSPECIFIED Status: Acute - Plan cont current plan of care * today will change lasix to po * tomorrow will repeat chest xray * cardiology to see today * echo will be done today * continue PT * medication reviewed as below * symptomatic treatment * wean off oxygen today as tolerated * expecting discharge tomorrow. Review of Systems - Review of Systems Constitutional: negative: fever, chills, sweats, weakness, malaise, other Eyes: negative: Pain, Vision Change, Conjunctivae Inflammation, Eyelid Inflammation, Redness, Other ENT: negative: Ear Pain, Ear Discharge, Nose Pain, Nose Discharge, Nose Congestion, Mouth Pain, Mouth Swelling, Throat Pain, Throat Swelling, Other Respiratory: negative: Cough, Dry, Shortness of Breath, Hemoptysis, SOB with Excertion, Pleuritic Pain, Sputum, Wheezing Cardiovascular: negative: chest pain, palpitations, orthopnea, paroxysmal nocturnal dyspnea, edema, light headedness, other Gastrointestinal: negative: Nausea, Vomiting, Abdominal Pain, Diarrhea, Constipation, Melena, Hematochezia, Other Genitourinary: negative: Dysuria, Frequency, Incontinence, Hematuria, Retention , Other Musculoskeletal: negative: Neck Pain, Shoulder Pain, Arm Pain, Back Pain, Hand Pain, Leg Pain, Foot Pain, Other Skin: negative: Rash, Lesions, Nikhil, Bruising, Other - Medications/Allergies Allergies/Adverse Reactions: Allergies Allergy/AdvReac Type Severity Reaction Status Date / Time codeine Allergy Verified 10/03/17 21:12 Medications: Current Medications Acetaminophen (Tylenol) 650 mg PO Q4H PRN PRN Reason: Headache/Fever or Pain Hydrocodone Bitart/Acetaminophen ([place] 5/325) 1 tab PO Q4H PRN PRN Reason: Moderate Pain (4-6) Al Hydroxide/Mg Hydroxide (Maalox) 30 ml PO Q6H PRN PRN Reason: Heartburn or Indigestion Albuterol/Ipratropium (Duoneb) 3 ml NEB [id number] PRN PRN Reason: SOB &/or Wheezing Alogliptin Benzoate (Alogliptin) 12.5 mg PO DAILY [facility] Last Admin: 10/05/17 08:58 Dose: 12.5 mg Artificial Tears (Tears Naturale) 0 drop EA EYE PRN PRN PRN Reason: Dry Eyes Aspirin (Aspirin Chewable) 81 mg PO DAILY [facility] Last Admin: 10/05/17 08:58 Dose: 81 mg Cholecalciferol (Vitamin D3) 5,000 units PO DAILY [facility] Last Admin: 10/05/17 08:57 Dose: 5,000 units Coenzyme Q10 (Coenzyme Q10) 100 mg PO DAILY [facility] Last Admin: 10/05/17 08:57 Dose: 100 mg Dextrose/Water (Dextrose 50%) 25 gm SLOW IVP PRN PRN PRN Reason: Hypoglycemia Enoxaparin Sodium (Lovenox) 40 mg SC 0900 [facility] Last Admin: 10/05/17 08:59 Dose: 40 mg Famotidine (Pepcid) 20 mg PO BID [facility] Last Admin: 10/05/17 08:59 Dose: 20 mg Ferrous Sulfate (Feosol) 325 mg PO QA-[facility] Last Admin: 10/05/17 08:58 Dose: 325 mg Fish Oil (Fish Oil) 1,000 mg PO DAILY [facility] Last Admin: 10/05/17 08:57 Dose: 1,000 mg Furosemide (Lasix) 40 mg SLOW IVP 0600,1400 [facility] Last Admin: 10/05/17 05:26 Dose: 40 mg Glucagon (Glucagon) 1 mg IM PRN PRN PRN Reason: Hypoglycemia Guaifenesin (Robitussin Sf) 200 mg PO Q4H PRN PRN Reason: Cough Last Admin: 10/04/17 05:54 Dose: 200 mg Hydralazine HCl (Apresoline) 10 mg SLOW IVP Q4H PRN PRN Reason: Systolic BP > 180 Dextrose/Water (D5w) 1,000 mls @ 0 mls/hr IV .Q0M PRN; As Directed PRN Reason: Hypoglycemia Insulin Human Lispro (Humalog) 0 units SC .MODERATE SLIDING SC PRN PRN Reason: Moderate Correctional Scale Insulin Human Lispro (Humalog) 0 units SC .BEDTIME SLIDING SC PRN PRN Reason: Bedtime Correctional Scale Iron/Minerals/Multivitamins (Theragran M) 1 tab PO DAILY [facility] Last Admin: 10/05/17 08:57 Dose: 1 tab Loperamide HCl (Imodium) 2 mg PO PRN PRN PRN Reason: Diarrhea/Loose Stools Loratadine (Claritin) 10 mg PO DAILYPRN PRN PRN Reason: Sinus Symptoms Magnesium Hydroxide (Milk Of Magnesium) 30 ml PO DAILYPRN PRN PRN Reason: Constipation Metformin HCl (Glucophage) 500 mg PO BID-[facility] Last Admin: 10/05/17 08:59 Dose: 500 mg Metoprolol Succinate (Toprol Xl) 25 mg PO DAILY [facility] Last Admin: 10/05/17 09:00 Dose: Not Given Mineral Oil/White Petrolatum (Eucerin Cream) 0 gm TOP BIDPRN PRN PRN Reason: Dry Skin Nitroglycerin (Nitrostat) 0.4 mg SL Q5MIN PRN PRN Reason: Chest Pain Olmesartan (Benicar) 40 mg PO DAILY [facility] Last Admin: 10/05/17 08:58 Dose: 40 mg Ondansetron HCl (Zofran Odt) 4 mg PO Q6H PRN PRN Reason: Nausea/Vomiting Ondansetron HCl (Zofran) 4 mg IVP Q6H PRN PRN Reason: Nausea/Vomiting Phenol (Chloraseptic [place] 180 Ml Bot) 0 ml PO PRN PRN PRN Reason: Sore Throat Senna (Senokot) 2 tab PO HSPRN PRN PRN Reason: Constipation Simvastatin (Zocor) 20 mg PO HS [facility] Last Admin: 10/04/17 20:55 Dose: 20 mg Sodium Chloride ([place] Nasal [place] 0.65%) 0 ml EA NARE QIDPRN PRN PRN Reason: Nasal Congestion Sodium Chloride (Flush - Normal Saline) 10 ml IVF Q12HR [facility] Last Admin: 10/05/17 09:01 Dose: 10 ml Sodium Chloride (Flush - Normal Saline) 10 ml IVF PRN PRN PRN Reason: Saline Flush Last Admin: 10/05/17 05:27 Dose: 10 ml Zolpidem Tartrate (Ambien) 5 mg PO HSPRN PRN PRN Reason: Insomnia Last Admin: 10/04/17 20:54 Dose: 5 mg
--- NOTE | 2017-10-05 10:56 | CON ---
DATE OF CONSULTATION: 10/04/2017 INDICATION FOR CONSULTATION: This is an 87-year-old female with a history of lymphoma and diastolic dysfunction who was admitted after having increasing shortness of breath. She was found to have a la rge right pleural effusion. She has undergone a thoracentesis and feels much better. We were asked to see her due to her congestive heart failure. She has a long history of diabetes, hypertension, an d dyslipidemia. She has recently been diagnosed with lymphoma. Recently, she has lost some weight, but then over the last couple of weeks, she has noticed increased lower extremity edema and shortness of breath to the point that she was unable to breathe and she presented to the emergency room where she was found to have a large right pleural effusion for which underwent a thoracentesis approximatel y of 1.5-2 liters. She also recently had a left neck node dissection performed with biopsy and there was some suspicion that this may be amyloidosis, which may be compatible with her previous echocardi ogram which showed significant left ventricular hypertrophy, but normal left ventricular systolic fun ction and most likely she has diastolic dysfunction associated with her left ventricular hypertrophy, especially in the fact that she has a normal ejection fraction, has lower extremity edema. She has accumulated quite a bit of fluid recently. She denied any chest pain except for some underneath the left breast area which radiates around to the back and is also tender to palpation. PAST MEDICAL HISTORY: Significant for Waldenstrom's macroglobulinemia, hypertension, diabetes, conge stive heart failure which is diastolic in nature. She has had a hip replacement, retinal surgery, hy sterectomy. ALLERGIES: She has no known allergies. MEDICATIONS PRIOR TO ADMISSION: Included Benicar 12/12.5 mg a day, aspirin 81 mg a day, CoQ10, fish oil, Lasix 20 mg a day, Januvia 50 mg daily, metformin, simvastatin daily. FAMILY HISTORY: She has a son with myelodysplastic syndrome. Both of her parents had some form of c ancer. SOCIAL HISTORY: She is . She has children who are alive and well. She lives with one of her daughters. She has no history of alcohol or tobacco abuse. REVIEW OF SYSTEMS: She had no new HEENT complaints. Pulmonary: She has complained of increasing sh ortness of breath and discomfort in her chest, but this did improve after she had a thoracentesis per formed earlier today. Cardiovascular: She complained of some chest discomfort, which does not appea r to be typical for coronary artery disease and she has some weight gain and lower extremity edema. GI: She has had some complaints of some occasional diarrhea. She denied any hematemesis or any bloo d in her stools or any other abnormalities. She has some tenderness in the right upper quadrant area . : She had no dysuria, polyuria or hematuria. Musculoskeletal: She does have some overall weak ness, but no significant complaints except for the lower extremity edema. Neurologic: No history of seizures or syncope. PHYSICAL EXAMINATION: GENERAL: Reveals a well-developed, very pleasant female who is in no acute distress. VITAL SIGNS: Her blood pressure is 119/64, heart rate is 94 and regular, respiratory rate 18, O2 sat uration 95% on 2 liters, temperature is 99. HEENT: Shows head to be normocephalic and atraumatic. She has a small incision over the left neck a alessandra from previous biopsy. NECK: Carotid pulses are present. She does have soft systolic bruit which I believe it radiates fro m the aortic area. LUNGS: She has decreased breath sounds bilaterally especially in the bases. There were no rales or rhonchi or wheezing noted. CARDIOVASCULAR: Reveals a regular rate and rhythm, S1 and S2. She has a soft systolic murmur at the apex. She also has a systolic murmur over the aortic area which radiates up toward the carotids. T here were no heaves or thrills noted. ABDOMEN: She does have some tenderness of the right upper quadrant area and also in the mid epigastr ic area, but there were no significant masses. The liver seems to be slightly enlarged. Femoral pul ses are present. EXTREMITIES: Show no clubbing, cyanosis. She did have mild lower extremity edema, but only very mil d. Pedal pulses are difficult to palpate, but the right pulse appeared to be present. NEUROLOGIC: She appears to be intact. SKIN: Warm and dry. Her EKG shows normal sinus rhythm at rate of 92 beats per minute with no acute changes. LABORATORY DATA: Shows hemoglobin of 11.7, WBC of 11.6, sodium was 135 with potassium 4.0, creatinin e is 1.07. Her troponin I was 0.180, this had slightly crept upwards from original admission troponi n I of 0.106, these are still indeterminate. Her MBs are negative. She has a chest x-ray did show a moderate to large size right pleural effusion for which underwent thoracentesis of 1.5-2 liters abel ier today by Dr. Radford. Please note that the biopsy earlier, there is some suspicion that this may be amyloidosis. IMPRESSION: 1. Congestive heart failure, which most likely is diastolic in nature. She had her echocardiogram i n April, which showed ejection fraction of 60-65% with severe concentric left ventricular hypertrop hy, mild left atrial enlargement and moderate tricuspid valve regurgitation with elevated right ventr icular systolic pressure consistent with moderate to severe pulmonary hypertension. We will repeat t he echocardiogram. Further care of the patient may depend on the echocardiogram. She was having Las ix at home since may not be an adequate dose since she did continue to gain fluid in her lower extrem ity edema as well as a pleural effusion. If she has amyloidosis, then obviously the prognosis is pre tty dim. 2. History of diabetes. This will be dealt with rather the primary care service appears to be in re asonable good control at this time but the family says she has not been eating very much recently. 3. Hypertension. This is under good control. We will continue to follow this and do not have any h istory of coronary artery disease. We will continue to follow the patient very carefully with you th roughout her admission. Thank you very much for the consultation.
--- NOTE | 2017-10-05 12:51 | PDOC.CTH ---
Cardiology Progress Note - Subjective She is doing much better after thoracenthesis. Her breathing is back to normal. - Objective Vital Signs Temp Pulse Resp BP Pulse Ox 10/05/17 04:00 98.0 F 90 16 123/57 L 94 L Weight 143 lb 1.6 oz 10/04/17 10/05/17 10/06/17 06:59 06:59 06:59 Intake Total 480 580 Output Total 700 1650 Balance -220 -1070 - Physical Examination General/Neuro: alert & oriented x3, NAD Neck: no JVD present Lungs: CTA, unlabored respirations Heart: RRR Abdomen: NT/ND Extremities: other: (no edema) - Telemetry Telemetry Rhythm: NSR - Labs Result Diagrams: 10/05/17 07:37 10/05/17 07:37 Troponin/CKMB CK-MB (CK-2) 1.3 ng/mL (0-6.6) 10/03/17 08:57 Troponin I 0.180 ng/mL (< 0.028) H 10/03/17 17:28 - Assessment/Plan 1. Acute on chornic diastolic heart failure 2. Grade 3/3 Diastolic dysfunction. 3. Waldenstrom Macroglobulenmia 4. Lymphoma, new diagnosis. PLAN: - Continue BP control. - No beta blockers, want heart rate above 80. - Continue other meds, - Likely home with lasix 40 mg PO daily - Echo pending.
[2017-10-05] MEDS: Furosemide 20 MG TAB PO SCH (13:22)
--- NOTE | 2017-10-05 16:21 | PRG ---
DATE OF SERVICE: 10/05/2017 SUBJECTIVE: Ms. Frausto states she feels better than yesterday. OBJECTIVE: VITAL SIGNS: She is afebrile, heart rate is 90, respiratory rate 16, oximetry is 94 on 2 liters, blo od pressure 122/57. LUNGS: She has crackles at her left base greater than the right. CARDIOVASCULAR: Regular rhythm. ABDOMEN: Soft and nontender. EXTREMITIES: Without asymmetry. Fat pad biopsy, amyloid stains are still pending. No malignant cells were seen in the pleural fluid. IMPRESSION: 1. Status post thoracentesis for transudative pleural effusion likely secondary to diastolic dysfunc tion. 2. Waldenstrom's macroglobulinemia. 3. Lymphoma that was only recently diagnosed. 4. History of hypertension. 5. History of diabetes. 6. History of hip replacement. PLAN: Continue medical management. Diuresis as tolerated. Blood pressure control. She appears to be adequate. There was a family and I answered all their questions.
[2017-10-05] MEDS: Zolpidem Tartrate 5 MG TAB PO PRN (20:45)
[2017-10-05] MEDS: Simvastatin 20 MG TAB PO SCH (20:45)
[2017-10-06] MEDS: Ubidecarenone 50 MG CAP PO SCH (08:55)
[2017-10-06] MEDS: Multivitamin W/ Minerals 1 TAB PO SCH (08:57)
[2017-10-06] MEDS: Alogliptin 25 MG TAB PO SCH (08:57)
[2017-10-06] MEDS: metFORMIN 500 MG TAB PO SCH ×2 (08:57→18:01)
[2017-10-06] MEDS: Furosemide 20 MG TAB PO SCH ×2 (08:57→14:36)
[2017-10-06] MEDS: Ferrous Sulfate 325 MG TAB PO SCH (08:58)
[2017-10-06] MEDS: Enoxaparin Sodium 40 MG/0.4 ML SYRINGE SC SCH (08:58)
[2017-10-06] MEDS: Fish Oil 1,000 MG CAP PO SCH (08:58)
[2017-10-06] MEDS ORDERED: Famotidine 20 MG TAB PO SCH (09:00)
[2017-10-06 09:07] LABS: Anion Gap 13 mmol/L (10-20); BUN (Urea Nitrogen) 24 mg/dL (9.8-20.1); Calc. Creatinine Clearance 34 mL/min (70-130); Calcium 9.6 mg/dL (7.8-10.44); Carbon Dioxide 29 mmol/L (23-31); Chloride 97 mmol/L (98-107); Estimated GFR-MDRD 40; Glucose 91 mg/dL (83-110); Magnesium 1.6 mg/dL (1.6-2.6); Potassium 4.2 mmol/L (3.5-5.1); Sodium 135 mmol/L (136-145)
--- NOTE | 2017-10-06 10:03 | RAD ---
CHEST 2 VIEWS: Date: 10/06/17 COMPARISON: 10/03/17. HISTORY: Congestive heart failure. FINDINGS: Interval decrease in right-sided pleural effusion. There is improved aeration of the right lung base. Persistent interstitial, and to a lesser extent alveolar opacities do remain. Stable aeration of the left lung. Slightly decrease in the left-sided pleural effusion. Stable hyperinflation. No pneumotho rax. Stable atherosclerosis. IMPRESSION: Improved aeration of the lung base. Slight decrease in bilateral pleural effusions. POS: OFF
--- NOTE | 2017-10-06 11:46 | PDOC.PN ---
- Subjective Encounter Start Date: 10/06/17 Encounter Start Time: 07:50 Patient seen and examined. No new complaints. No overnight events - Objective Resuscitation Status: Resuscitation Status FULL:Full Resuscitation MAR Reviewed: Yes Vital Signs & Weight: Vital Signs (12 hours) Temp Pulse Resp BP Pulse Ox 10/06/17 08:50 98.5 F 94 16 122/59 L 97 10/06/17 04:00 98.0 F 85 12 117/58 L 94 L 10/06/17 00:00 97.4 F L 85 17 116/57 L 96 Weight Weight 145 lb 9.6 oz I&O: 10/05/17 10/06/17 10/07/17 06:59 06:59 06:59 Intake Total 580 720 Output Total 1650 1775 Balance -1070 -1055 Result Diagrams: 10/05/17 07:37 10/06/17 08:16 Additional Labs: Accuchecks 10/06/17 10/06/17 10/05/17 10:35 06:31 20:36 POC Glucose 156 H 105 110 10/05/17 18:13 POC Glucose 90 Radiology Reviewed by me: Yes (chest xray) EKG Reviewed by me: Yes Phys Exam - Physical Examination Constitutional: NAD HEENT: PERRLA, moist MMs, sclera anicteric Neck: no JVD, supple Respiratory: no wheezing, no rales, no rhonchi reduced air entry at base Cardiovascular: RRR, no significant murmur, no rub Gastrointestinal: soft, non-tender, no distention, positive bowel sounds Musculoskeletal: no edema, pulses present Neurological: non-focal, normal sensation, moves all 4 limbs Psychiatric: normal affect, A&O x 3 Skin: no rash, normal turgor Dx/Plan (1) Acute exacerbation of CHF (congestive heart failure) Code(s): I50.9 - HEART FAILURE, UNSPECIFIED Status: Acute Qualifiers: Heart failure type: diastolic Qualified Code(s): I50.33 - Acute on chronic diastolic (congestive) heart failure (2) Demand ischemia of myocardium Code(s): I24.8 - OTHER FORMS OF ACUTE ISCHEMIC HEART DISEASE Status: Acute (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 - EXTRNOD MRGNL ZN B-CELL LYMPH OF MUCOS[place]-ASSOC LYMPHOID TISS Status: Acute Comment: recent new diagnosis (4) Pleural effusion, right Code(s): J90 - PLEURAL EFFUSION, NOT ELSEWHERE CLASSIFIED Status: Acute Comment: s/p thoracentesis (5) CKD (chronic kidney disease) stage 3, GFR 30-59 ml/min Code(s): N18.3 - CHRONIC KIDNEY DISEASE, STAGE 3 (MODERATE) Status: Chronic (6) Diabetes type 2, controlled Code(s): E11.9 - TYPE 2 DIABETES MELLITUS WITHOUT COMPLICATIONS Status: Chronic (7) Dyslipidemia Code(s): E78.5 - HYPERLIPIDEMIA, UNSPECIFIED Status: Chronic (8) Hypertension Code(s): I10 - ESSENTIAL (PRIMARY) HYPERTENSION Status: Chronic (9) Waldenstrom macroglobulinemia Code(s): C88.0 - WALDENSTROM MACROGLOBULINEMIA Status: Chronic (10) Acute kidney injury Code(s): N17.9 - ACUTE KIDNEY FAILURE, UNSPECIFIED Status: Acute - Plan cont current plan of care, plan discussed w/ family * NATHANAEL mandujano * pt is now euvolemic despite high BNP * medication reviewed as below * symptomatic treatment * ambulate * expecting discharge if cardiology OK. Review of Systems - Review of Systems ENT: negative: Ear Pain, Ear Discharge, Nose Pain, Nose Discharge, Nose Congestion, Mouth Pain, Mouth Swelling, Throat Pain, Throat Swelling, Other Respiratory: negative: Cough, Dry, Shortness of Breath, Hemoptysis, SOB with Excertion, Pleuritic Pain, Sputum, Wheezing Cardiovascular: negative: chest pain, palpitations, orthopnea, paroxysmal nocturnal dyspnea, edema, light headedness, other Gastrointestinal: negative: Nausea, Vomiting, Abdominal Pain, Diarrhea, Constipation, Melena, Hematochezia, Other Genitourinary: negative: Dysuria, Frequency, Incontinence, Hematuria, Retention , Other Musculoskeletal: negative: Neck Pain, Shoulder Pain, Arm Pain, Back Pain, Hand Pain, Leg Pain, Foot Pain, Other Skin: negative: Rash, Lesions, Nikhil, Bruising, Other - Medications/Allergies Allergies/Adverse Reactions: Allergies Allergy/AdvReac Type Severity Reaction Status Date / Time codeine Allergy Verified 10/03/17 21:12 Medications: Current Medications Acetaminophen (Tylenol) 650 mg PO Q4H PRN PRN Reason: Headache/Fever or Pain Hydrocodone Bitart/Acetaminophen (Vestal 5/325) 1 tab PO Q4H PRN PRN Reason: Moderate Pain (4-6) Al Hydroxide/Mg Hydroxide (Maalox) 30 ml PO Q6H PRN PRN Reason: Heartburn or Indigestion Albuterol/Ipratropium (Duoneb) 3 ml NEB [id number] PRN PRN Reason: SOB &/or Wheezing Alogliptin Benzoate (Alogliptin) 12.5 mg PO DAILY COUNT INCLUDES THE [facility] Last Admin: 10/06/17 08:57 Dose: 12.5 mg Artificial Tears (Tears Naturale) 0 drop EA EYE PRN PRN PRN Reason: Dry Eyes Aspirin (Aspirin Chewable) 81 mg PO DAILY COUNT INCLUDES THE [facility] Last Admin: 10/06/17 08:57 Dose: 81 mg Cholecalciferol (Vitamin D3) 5,000 units PO DAILY COUNT INCLUDES THE [facility] Last Admin: 10/06/17 08:58 Dose: 5,000 units Coenzyme Q10 (Coenzyme Q10) 100 mg PO DAILY COUNT INCLUDES THE [facility] Last Admin: 10/06/17 08:55 Dose: 100 mg Dextrose/Water (Dextrose 50%) 25 gm SLOW IVP PRN PRN PRN Reason: Hypoglycemia Enoxaparin Sodium (Lovenox) 40 mg SC 0900 COUNT INCLUDES THE [facility] Last Admin: 10/06/17 08:58 Dose: 40 mg Famotidine (Pepcid) 20 mg PO 0900 COUNT INCLUDES THE [facility] Last Admin: 10/06/17 08:54 Dose: 20 mg Ferrous Sulfate (Feosol) 325 mg PO QAM-[facility] Last Admin: 10/06/17 08:58 Dose: 325 mg Fish Oil (Fish Oil) 1,000 mg PO DAILY COUNT INCLUDES THE [facility] Last Admin: 10/06/17 08:58 Dose: 1,000 mg Furosemide (Lasix) 20 mg PO 0900,1400 COUNT INCLUDES THE [facility] Last Admin: 10/06/17 08:57 Dose: 20 mg Glucagon (Glucagon) 1 mg IM PRN PRN PRN Reason: Hypoglycemia Guaifenesin (Robitussin Sf) 200 mg PO Q4H PRN PRN Reason: Cough Last Admin: 10/04/17 05:54 Dose: 200 mg Hydralazine HCl (Apresoline) 10 mg SLOW IVP Q4H PRN PRN Reason: Systolic BP > 180 Dextrose/Water (D5w) 1,000 mls @ 0 mls/hr IV .Q0M PRN; As Directed PRN Reason: Hypoglycemia Insulin Human Lispro (Humalog) 0 units SC .MODERATE SLIDING SC PRN PRN Reason: Moderate Correctional Scale Last Admin: 10/05/17 13:22 Dose: 2 unit Insulin Human Lispro (Humalog) 0 units SC .BEDTIME SLIDING SC PRN PRN Reason: Bedtime Correctional Scale Iron/Minerals/Multivitamins (Theragran M) 1 tab PO DAILY COUNT INCLUDES THE [facility] Last Admin: 10/06/17 08:57 Dose: 1 tab Loperamide HCl (Imodium) 2 mg PO PRN PRN PRN Reason: Diarrhea/Loose Stools Loratadine (Claritin) 10 mg PO DAILYPRN PRN PRN Reason: Sinus Symptoms Magnesium Hydroxide (Milk Of Magnesium) 30 ml PO DAILYPRN PRN PRN Reason: Constipation Metformin HCl (Glucophage) 500 mg PO BID-[facility] Last Admin: 10/06/17 08:57 Dose: 500 mg Mineral Oil/White Petrolatum (Eucerin Cream) 0 gm TOP BIDPRN PRN PRN Reason: Dry Skin Nitroglycerin (Nitrostat) 0.4 mg SL Q5MIN PRN PRN Reason: Chest Pain Olmesartan (Benicar) 40 mg PO DAILY COUNT INCLUDES THE [facility] Last Admin: 10/06/17 08:56 Dose: 40 mg Ondansetron HCl (Zofran Odt) 4 mg PO Q6H PRN PRN Reason: Nausea/Vomiting Ondansetron HCl (Zofran) 4 mg IVP Q6H PRN PRN Reason: Nausea/Vomiting Phenol (Chloraseptic [place] 180 Ml Bot) 0 ml PO PRN PRN PRN Reason: Sore Throat Senna (Senokot) 2 tab PO HSPRN PRN PRN Reason: Constipation Simvastatin (Zocor) 20 mg PO [facility] Last Admin: 10/05/17 20:45 Dose: 20 mg Sodium Chloride ([place] Nasal [place] 0.65%) 0 ml EA NARE QIDPRN PRN PRN Reason: Nasal Congestion Sodium Chloride (Flush - Normal Saline) 10 ml IVF Q12HR COUNT INCLUDES THE [facility] Last Admin: 10/06/17 09:05 Dose: 10 ml Sodium Chloride (Flush - Normal Saline) 10 ml IVF PRN PRN PRN Reason: Saline Flush Last Admin: 10/05/17 05:27 Dose: 10 ml Zolpidem Tartrate (Ambien) 5 mg PO HSPRN PRN PRN Reason: Insomnia Last Admin: 10/05/17 20:45 Dose: 5 mg
--- NOTE | 2017-10-06 13:28 | DIS ---
DATE OF ADMISSION: 10/03/2017 DATE OF DISCHARGE: 10/06/2017 PRIMARY CARE PHYSICIAN: Justin Rodriguez M.D. PRIMARY DISCHARGE DIAGNOSES: Acute on chronic diastolic congestive heart failure exacerbation, acute kidney injury due to diuretic therapy, demand ischemia of myocardium, right pleural effusion status post thoracentesis. SECONDARY DISCHARGE DIAGNOSES: Waldenstrom macroglobulinemia, hypertension, dyslipidemia, diabetes t ype 2, lymphoma, chronic kidney disease stage 3, chronic diastolic heart failure. PRIMARY PROCEDURE/OPERATION: Right-sided thoracentesis performed by Dr. Radford. RADIOLOGICAL INVESTIGATION: Chest x-ray showed right pleural effusion. CT soft tissue neck consiste nt with lymphoma. CT chest angiography showed no PE, but right pleural effusion as well as left pleu ral effusion, pulmonary vascular congestion. Repeat chest x-ray showed improvement in effusion. Ech ocardiography showed pulmonary hypertension, severe TR, normal EF and LVH. SIGNIFICANT LABS: Hemoglobin 11.2, creatinine 1.28. BNP 2701. Urinalysis normal. Thoracentesis fl uid consistent with a transudative pattern. Blood culture negative. Fluid culture negative, influen za negative. DISCHARGE MEDICATIONS: Aspirin 81 mg p.o. daily, vitamin D3 of 5000 units p.o. daily, fish oil 1000 mg p.o. daily, Lasix 40 mg p.o. daily, metformin ER 500 mg p.o. b.i.d., Toprol-XL 25 mg p.o. daily, B enicar 40 mg p.o. daily, Zocor 20 mg p.o. at bedtime, Januvia 50 mg p.o. daily, Coenzyme Q10 one tabl et p.o. daily. CONTRAINDICATION: None. CODE STATUS: FULL CODE. INPATIENT CONSULTANTS: Dr. Mc was following while in hospital. Dr. Johnson was following while in hospital. TEST RESULTS PENDING ON DISCHARGE: None. ALLERGIES: CODEINE. DISCHARGE PLAN: Post hospital, the patient will follow up with primary care physician in 1 week. patient will follow up with Dr. Johnson as instructed. The patient will make appointment with Dr. Seymour weiss for lymphoma treatment. HOSPITAL COURSE: An 87-year-old female who was admitted by me. Please see my HPI for further detail . This patient was admitted on 10/03/2017 with increasing shortness of breath, orthopnea, and lower extremity edema. Patient had a chest x-ray which showed pleural effusion. This patient had elevated D-dimer and that is why the patient had a CT angio which showed no PE, but showed bilateral pleural effusion, more on the right side. Patient also had elevated BNP. The patient was admitted to [facility] floor. She was treated with Lasix and diuretic therapy. The patient also underwent thoracentesi s by Dr. Radford and significant amount of fluid was removed. After that, patient was feeling much bett er. We continued diuretic therapy and that is why patient developed mild acute kidney injury. We cu t down diuretic therapy and her kidney started improving. This patient is on room air. The patient is ambulatory. Her edema improved. Her repeat chest x-ray showed significant improvement in congest ion. Echocardiography showed normal EF, LVH as well as severe TR and pulmonary hypertension. Cardio pulmonary cleared her for discharge. The patient's family member also okay to let her go home. Onco logy was consulted while in hospital and they will start chemotherapy as an outpatient basis for lymp sloane. Abdominal fat pad biopsy was done by Dr. Arevalo during this hospital course. The patient is seen and examined at bedside today. Please see my progress note from today for furthe r detail. Plan of care discussed with the patient and family member. Dietary instruction and fluid restriction discussed with the family member as well.
[2017-10-06 18:04] VITALS: BP 128/73; TEMP 98.3
--- NOTE | 2017-10-06 19:05 | PDOC.CTH ---
Cardiology Progress Note - Subjective She is doing better every day. No new issues. She states she slept very well with ambien. - Objective Vital Signs Temp Pulse Pulse Pulse Resp BP BP 10/06/17 16:35 98.3 F 85 16 10/06/17 12:42 75 86 103/53 L 133/59 L 10/06/17 12:10 98 F 79 16 10/06/17 08:50 98.5 F 94 16 BP Pulse Ox Pulse Ox Pulse Ox 10/06/17 16:35 128/73 99 10/06/17 12:42 90 L 98 10/06/17 12:10 122/59 L 98 10/06/17 08:50 122/59 L 97 Weight 145 lb 9.6 oz 10/05/17 10/06/17 10/07/17 06:59 06:59 06:59 Intake Total 580 720 360 Output Total 1650 1775 550 Balance -3310 -6323 -190 - Physical Examination General/Neuro: alert & oriented x3, NAD Neck: no JVD present Lungs: CTA, unlabored respirations Heart: RRR Abdomen: NT/ND Extremities: other: (no edema) - Telemetry Telemetry Rhythm: NSR - Labs Result Diagrams: 10/05/17 07:37 10/06/17 08:16 Troponin/CKMB CK-MB (CK-2) 1.3 ng/mL (0-6.6) 10/03/17 08:57 Troponin I 0.180 ng/mL (< 0.028) H 10/03/17 17:28 - Assessment/Plan 1. Acute on chornic diastolic heart failure 2. Grade 3/3 Diastolic dysfunction. 3. Waldenstrom Macroglobulenmia 4. Lymphoma, new diagnosis. PLAN: - Continue BP control. - No beta blockers, want heart rate above 80. - Continue other meds, - Home anytime from cardiac perspective. - Will modify his Lasix to 40 mg PO daily but will ask her to continue BID lasix at 40 mg PO for about 3 days after discharge and then once a day. - Echo is unchanged.
--- NOTE | 2017-10-07 00:19 | PRG ---
DATE OF SERVICE: 10/06/2017 SUBJECTIVE: Alli has no new complaints. She says she is doing well. She denies shortness of breat h. OBJECTIVE: LUNGS: Still remarkable for crackles at her left base greater than the right. CARDIOVASCULAR: Regular rhythm. ABDOMEN: Soft. IMPRESSION: Pleural effusion secondary to diastolic dysfunction. PLAN: Discharge and Cardiology feels stable. I have asked her to see me in 4-6 weeks for repeat rad iograph.
== END 2017-10-06 18:00 | disposition home or self-care (01) | DRG 291 ==
LOC: ERS 08:04 → ERHOLD 11:29 → 2NO 16:58
PROVIDERS: ADMIT Internal Medicine; ATTEND Internal Medicine
PROC: 0W993ZX Drainage of Right Pleural Cavity, Percutaneous Approach, Diagnostic (ICD-10-PCS; 2017-10-03)
PROC: 0JB83ZX Excision of Abdomen Subcutaneous Tissue and Fascia, Percutaneous Approach, Diagnostic (ICD-10-PCS; principal; 2017-10-04)
DX: E11.22 Type 2 diabetes mellitus with diabetic chronic kidney disease; N18.3 Chronic kidney disease, stage 3 (moderate); I13.0 Hypertensive heart and chronic kidney disease with heart failure and stage 1 through stage 4 chronic kidney disease, or unspecified chronic kidney disease; Z88.5 Allergy status to narcotic agent; D63.1 Anemia in chronic kidney disease; T50.2X5A Adverse effect of carbonic-anhydrase inhibitors, benzothiadiazides and other diuretics, initial encounter; J98.11 Atelectasis; E78.5 Hyperlipidemia, unspecified; I27.20 Pulmonary hypertension, unspecified; C88.4 Extranodal marginal zone B-cell lymphoma of mucosa-associated lymphoid tissue [MALT-lymphoma]; Z96.649 Presence of unspecified artificial hip joint; C88.0 Waldenstrom macroglobulinemia; Z79.84 Long term (current) use of oral hypoglycemic drugs; N17.9 Acute kidney failure, unspecified; I07.1 Rheumatic tricuspid insufficiency; I50.33 Acute on chronic diastolic (congestive) heart failure; I24.8 Other forms of acute ischemic heart disease; E85.89 Other amyloidosis; Z79.82 Long term (current) use of aspirin
CPT/HCPCS: 32554; 36415; 36416; 51702; 70491; 71045; 71046; 71275; 80048; 80053; 81001; 82150; 82550; 82553; 82945; 83605; 83615; 83735; 83880; 83986; 84157; 84443; 84478; 84484; 84550; 85025; 85060; 87040; 87070; 87116; 87205; 87206; 87804; 88112; 88304; 88305; 88313; 89051; 93005; 93306; 93798; 94760; 96361; 96374; A4216; J1642; J1650; J1940; J2001

== ENCOUNTER 2017-10-13 16:25 | Inpatient (IN) | payer MEDICARE ==
[2017-10-13 17:18] LABS: #Basophils 0.1 thou/uL (0.0-0.2); #Lymphocytes 2.7 thou/uL (1.20-3.40); #Monocytes 0.7 thou/uL (0.11-0.59); #Neutrophils 4.3 thou/uL (1.40-6.50); %Basophils 1.2 % (0.0-1.0); %Eosinophils 0.5 % (0.0-10.0); %Lymphocytes 34.6 % (21.0-51.0); %Monocytes 9.1 % (0.0-10.0); %Neutrophils 54.7 % (42.0-75.0); Mean Corpuscular Hemoglobin 30.4 pg (27.0-31.0); Mean Corpuscular Volume 94.9 fl (81.0-99.0); Mean Platelet Volume 7.4 fL (7.4-10.4); Platelet Count 383 thou/uL (130-400); Red Blood Cell (RBC) Count 3.94 mill/uL (4.20-5.40); White Blood Cell (WBC) Count 7.8 thou/uL (4.8-10.8)
[2017-10-13 17:41] LABS: ALT (SGPT) 18 U/L (8-55); AST (SGOT) 16 U/L (5-34); Albumin 3.9 g/dL (3.4-4.8); Alkaline Phosphatase 66 U/L (40-150); Anion Gap 15 mmol/L (10-20); BUN (Urea Nitrogen) 31 mg/dL (9.8-20.1); Bilirubin, Total 0.4 mg/dL (0.2-1.2); CK (CPK) 23 U/L (29-168); Calc. Creatinine Clearance 0 mL/min (70-130); Calcium 10.2 mg/dL (7.8-10.44); Carbon Dioxide 25 mmol/L (23-31); Chloride 93 mmol/L (98-107); Estimated GFR-MDRD 29; Glucose 100 mg/dL (83-110); Potassium 4.3 mmol/L (3.5-5.1); Protein, Total 7.9 g/dL (6.0-8.3); Sodium 129 mmol/L (136-145)
[2017-10-13 17:45] LABS: CKMB 1.3 ng/mL (0-6.6); Troponin I 0.178 ng/mL (< 0.028)
[2017-10-13] MEDS ORDERED: Acetaminophen 650 MG Suppository PR PRN (20:07)
[2017-10-13] MEDS ORDERED: Bisacodyl 5 MG TAB PO PRN (20:07)
[2017-10-13] MEDS ORDERED: Acetaminophen 325 MG TAB PO PRN (20:07)
[2017-10-13] MEDS ORDERED: Zolpidem Tartrate 5 MG TAB PO PRN (20:11)
[2017-10-13] MEDS ORDERED: Furosemide 40 MG/4 ML VIAL SLOW IVP SCH (20:30)
--- NOTE | 2017-10-13 21:34 | HP ---
PRIMARY CARE PHYSICIAN: Dr. Justin Rodriguez. PRIMARY RAKING MACHINE OPERATOR: Dr. Johnson. PRIMARY SOLARIS ADMINISTRATOR: Dr. Mc. CHIEF COMPLAINT: Shortness of breath. HISTORY OF PRESENT ILLNESS: Ms. Carson is a pleasant 87-year-old lady who was seen at [facility] on 10/13/2017. She was hospitalized at this facility from 10/03 to 10/06 of this year for acute on chronic diastolic congestive heart failure, acute kidney injury due to diuretic therapy and a right pleural effusion, status post thoracentesis. She reports that she did well on the evening of discharge. Following that, she continued to have bridgette rtness of breath. She reports orthopnea. She reports paroxysmal nocturnal dyspnea. She reports bharat ateral leg swelling. She denies any fevers or chills. She reports dry cough. She was recently diag nosed with lymphoma and is scheduled to start chemotherapy. She was seen by her oncologist today and was sent for a chest x-ray. Following the chest x-ray, she continued to feel severe shortness of breath. She was therefore brought to the Emergency Room. REVIEW OF SYSTEMS: The following complete review of systems was negative, unless otherwise mentioned in the HPI or below: Constitutional: Weight loss or gain, ability to conduct usual activities. Skin: Rash, itching. Eyes: Double vision, pain. ENT/Mouth: Nose bleeding, neck stiffness, pain, tenderness. Cardiovascular: Palpitations, dyspnea on exertion, orthopnea. Respiratory: Shortness of breath, wheezing, cough, hemoptysis, fever or night sweats. Gastrointestinal: Poor appetite, abdominal pain, heartburn, nausea, vomiting, constipation, or diarr hea. Genitourinary: Urgency, frequency, dysuria, nocturia. Musculoskeletal: Pain, swelling. Neurologic/Psychiatric: Anxiety, depression. Allergy/Immunologic: Skin rash, bleeding tendency. PAST MEDICAL HISTORY: Congestive heart failure, diabetes mellitus, hypertension, and lymphoma. PAST SURGICAL HISTORY: Hip replacement, retinal surgery, hysterectomy, lymph node biopsy and thorace ntesis. FAMILY HISTORY: No family history of premature coronary artery disease. SOCIAL HISTORY: No history of tobacco use, alcohol use, or recreational drug use. ALLERGIES: No known drug allergies. CURRENT HOME MEDICATIONS: Aspirin 81 mg daily, vitamin D3 of 5000 units daily, fish oil 1000 mg farhat y, Lasix 40 mg daily, metformin 500 mg 2 times a day, Toprol-XL 25 mg daily, Benicar 40 mg daily, Zoc or 20 mg at bedtime, Januvia 50 mg daily, Coenzyme Q10 one tablet daily. CODE STATUS: I discussed her code status. She is DNR. PHYSICAL EXAMINATION: GENERAL: Ms. Carson is awake and alert, in mild respiratory distress. VITAL SIGNS: Blood pressure is 150/72, pulse is 73. She is breathing at rate of 18, and saturating 100% on 2 liters of oxygen. She is afebrile. EYES: No scleral icterus. No clinical pallor. ENT: Moist mucosal membranes, no oropharyngeal erythema or exudates. NECK: Supple, nontender, normal range of movement. Trachea is midline. She has jugular venous dist ention. RESPIRATORY: Accessory muscles of breathing are active. Chest wall movements are symmetric bilatera lly. LUNGS: Examination reveals diminished breath sounds at both bases as well as lung crackles above the areas of diminished air entry. ABDOMEN: Soft, nontender, bowel sounds are heard, no hepatomegaly, no splenomegaly. CARDIOVASCULAR: S1 and S2 are heard, regular. Peripheral pulses palpable. No carotid bruit, no per icardial rub. MUSCULOSKELETAL: Power is 5/5 in all 4 extremities. Normal range of movement at all major extremity joints. She has bilateral lower extremity edema. SKIN: No rashes or subcutaneous nodules. NEUROLOGIC: Cranial nerves II-XII intact. Deep tendon reflexes are 2+. PSYCHIATRIC: Normal mood, normal affect, patient is oriented to person, place, and time. LABORATORY DATA: Ms. Carson labs and investigations were reviewed. Electrocardiogram showed a normal sinus rhythm, no ST changes to suggest an acute coronary syndrome. She also had a chest x-ray done at [place], radiology, I am unable to access the original film, but the radiologist report indicates th at patient has increasing volume bilateral pleural effusions, right greater than left, as well as pul monary parenchymal opacity. She has an unremarkable CBC, decreased sodium of 129, normal potassium, elevated blood urea nitrogen of 31, elevated creatinine of 1.70, last creatinine was 1.28 on 10/07/19 18, unremarkable liver profile, indeterminate troponin I of 0.178, last known troponin I 0.180 on 08/2017 and elevated BNP of 3361 ASSESSMENT AND PLAN: Ms. Carson is a pleasant 87-year-old lady who was seen at [facility] on 10/13/2017. Her problem list includes: 1. Shortness of breath: Most likely secondary to congestive heart failure exacerbation. Ms. Carson is known to have diastolic heart failure. 2. Acute on chronic diastolic congestive heart failure. Patient will be admitted to the hospital, t reated with intravenous diuretics with strict ins and outs. Cardiology service will be consulted for help with management. 3. Pleural effusions. Pulmonology service will be consulted for opinion and help with management. 4. Diabetes mellitus. Start Accu-Cheks, insulin sliding scale. 5. Hypertension. Monitor vital signs, titrate antihypertensives as needed. 6. Lymphoma: Patient to follow up with her oncologist as outpatient. Many thanks for allowing me to participate in your patient's care. Please feel free to contact me wi th any questions or concerns. LEVEL OF RISK: High. LEVEL OF COMPLEXITY: High.
[2017-10-13] MEDS: Atorvastatin Calcium 10 MG TAB PO SCH (23:30)
[2017-10-14 05:38] LABS: #Eosinphils 0.1 thou/uL (0.0-0.7); #Lymphocytes 2.7 thou/uL (1.20-3.40); #Monocytes 0.5 thou/uL (0.11-0.59); #Neutrophils 2.4 thou/uL (1.40-6.50); %Basophils 0.8 % (0.0-1.0); %Eosinophils 1.2 % (0.0-10.0); %Lymphocytes 47.5 % (21.0-51.0); %Monocytes 8.4 % (0.0-10.0); %Neutrophils 42.1 % (42.0-75.0); Hemoglobin 10.1 g/dL (12.0-16.0); Mean Corpuscular HGB CONC 33.3 g/dL (32.0-36.0); Mean Corpuscular Hemoglobin 31.3 pg (27.0-31.0); Mean Corpuscular Volume 94.1 fl (81.0-99.0); Mean Platelet Volume 8.1 fL (7.4-10.4); Platelet Count 287 thou/uL (130-400); Red Blood Cell (RBC) Count 3.21 mill/uL (4.20-5.40); White Blood Cell (WBC) Count 5.8 thou/uL (4.8-10.8)
[2017-10-14 05:54] LABS: Anion Gap 15 mmol/L (10-20); BUN (Urea Nitrogen) 31 mg/dL (9.8-20.1); Calc. Creatinine Clearance 27 mL/min (70-130); Calcium 9.1 mg/dL (7.8-10.44); Carbon Dioxide 23 mmol/L (23-31); Chloride 96 mmol/L (98-107); Estimated GFR-MDRD 33; Glucose 96 mg/dL (83-110); Potassium 4.1 mmol/L (3.5-5.1); Sodium 130 mmol/L (136-145)
[2017-10-14] MEDS ORDERED: Furosemide 40 MG/4 ML VIAL SLOW IVP SCH (09:00)
[2017-10-14] MEDS: Alogliptin 6.25 MG TAB PO SCH (09:21)
[2017-10-14] MEDS: Aspirin 81 mg Enteric Coated Tablet PO SCH (09:21)
[2017-10-14] MEDS: metFORMIN XR 500 MG TAB PO SCH ×2 (09:21→17:22)
[2017-10-14] MEDS: Fish Oil 1,000 MG CAP PO SCH (09:25)
[2017-10-14] MEDS: Ubidecarenone 50 MG CAP PO SCH (09:26)
[2017-10-14] MEDS: Enoxaparin Sodium 30 MG/0.3 ML SYRINGE SC SCH (09:34)
[2017-10-14] MEDS ORDERED: Dextrose 50% Abboject 50 ML SYRINGE SLOW IVP PRN (16:35)
[2017-10-14] MEDS ORDERED: Insulin Regular 300 UNITS/3 ML VIAL SC PRN ×2 (16:35)
[2017-10-14] MEDS ORDERED: Dextrose 5% in Water 1,000 ML IV PRN (16:35)
--- NOTE | 2017-10-14 17:33 | CON ---
DATE OF CONSULTATION: 10/14/2017 REASON FOR CONSULTATION: Heart failure. HISTORY OF PRESENT ILLNESS: Mrs. Carson is a pleasant 87-year-old white female who comes to the [facility] for increased shortness of breath. She was in the hospital just recently for the same reason. S he was diuresed. She had a thoracentesis to get some of that fluid out. She eventually felt much be tter and after more diuresis with IV Lasix, she was switched to p.o. and sent home. Daughter tells m daniel that as soon as she came out of the hospital, she started to reaccumulate fluid slowly to the point where just three days later, she was back feeling really short of breath. Blood pressure in the 170 s over 100s and she was sent in for further care. She was diagnosed at that time from a fat pad biop sy with amyloidosis and this would go with her infiltrative process in her heart as she has got a yahaira y thick LV. She is feeling better now that she already received a dose of Lasix. PAST MEDICAL HISTORY: 1. Chronic diastolic heart failure. 2. Type 2 diabetes. 3. Hypertension. 4. Lymphoma, recently diagnosed. 5. Amyloidosis recently diagnosed as well. PAST SURGICAL HISTORY: 1. Hip replacement. 2. Retinal surgery. 3. Hysterectomy. 4. Lymph node biopsy and thoracentesis. FAMILY HISTORY: Noncontributory. SOCIAL HISTORY: No alcohol, tobacco or drugs. ALLERGIES: No known drug allergies. OUTPATIENT MEDICATIONS: Reviewed and unchanged. Please see Dr. Pathak's note. REVIEW OF SYSTEMS: A 12-point review of systems and is all negative unless stated in the history of present illness. PHYSICAL EXAMINATION: VITAL SIGNS: Temperature 97.8, pulse 81, respiration rate 18, satting 95% on 1.5 liters, blood press ure 143/66. GENERAL: Awake, alert, oriented x3, in no distress. HEENT: Normocephalic. NECK: Supple. LUNGS: Have mild crackles at bases. CARDIOVASCULAR: S1, S2, no S3, S4, no murmurs. ABDOMEN: Soft, positive bowel sounds. EXTREMITIES: 1+ edema. SKIN: Warm and dry. LABORATORY WORK: Reviewed. CBC and chemistries were reviewed. Creatinine went from 1.7 down to 1.5 , so one dose of IV Lasix. BNP was 3361. Troponin was 0.178. Albumin was 3.9. EKG was reviewed. ASSESSMENT: 1. Acute on chronic diastolic heart failure. 2. 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 3. Bilateral pleural effusion likely related to volume overload, should get better with diuresis. 4. Type 2 diabetes. 5. Hypertension. 6. Lymphoma. PLAN: 1. Continue IV Lasix. At this time, it will be just a matter of trying to find the adequate dose of Lasix or diuretics that she will require as an outpatient. For now, we will do IV Lasix and see how much she is requiring. I would probably switch her to p.o. in the next few days. We will evaluate every morning and see what the fluid status is at that time and once we switch her, I would probably keep her for an extra 2 days before sending her home to make sure that she is not re-accumulating flu id on the current Lasix p.o. dose. 2. Otherwise, continue other medications for now. Thank you for letting us to participate in the care of your patient. We will follow.
[2017-10-14] MEDS ORDERED: ALPRAZolam 0.25 MG TAB PO PRN ×2 (18:12→18:22)
--- NOTE | 2017-10-14 20:23 | PDOC.PN ---
- Subjective Encounter Start Date: 10/14/17 Encounter Start Time: 15:30 Patient seen and examined. No new complaints. No overnight events. SOB improving. - Objective Resuscitation Status: Resuscitation Status DNR:Do Not Resuscitate MAR Reviewed: Yes Vital Signs & Weight: Vital Signs (12 hours) Temp Pulse Pulse Pulse Resp BP BP 10/14/17 19:44 98.5 F 70 14 10/14/17 17:16 98 F 78 18 10/14/17 12:27 97.8 F 81 18 10/14/17 08:41 68 68 127/58 L 125/57 L BP Pulse Ox Pulse Ox Pulse Ox 10/14/17 19:44 132/70 94 L 10/14/17 17:16 114/58 L 95 10/14/17 12:27 143/66 H 95 10/14/17 08:41 98 99 Weight Admit Weight 137 lb 4.8 oz Weight 137 lb 4.8 oz I&O: 10/13/17 10/14/17 10/15/17 06:59 06:59 06:59 Intake Total 120 1560 Output Total 875 1325 Balance -755 235 Result Diagrams: 10/15/17 04:23 10/15/17 04:23 Additional Labs: Accuchecks 10/14/17 10/14/17 10/14/17 16:42 10:56 06:06 POC Glucose 125 H 128 H 129 H EKG Reviewed by me: Yes (Tele SR) Phys Exam - Physical Examination Constitutional: NAD Respiratory: no wheezing, no rhonchi Dec AE at bases Cardiovascular: RRR, no rub Gastrointestinal: soft, non-tender, positive bowel sounds Musculoskeletal: edema present Neurological: non-focal, moves all 4 limbs Dx/Plan - Plan DVT proph w/SCDs IMPRESSION: 1. Acute on chronic diastolic heart failure 2. Pleural effusion 3. HTN 4. DM2 5. Anxiety/Lymphoma/Amylodosis PLAN: * Cont diuresis * AM labs * Cardio/Pulm following * Cont to monitor Review of Systems - Review of Systems Respiratory: negative: Cough, Dry, Shortness of Breath, Hemoptysis, SOB with Excertion, Pleuritic Pain, Sputum, Wheezing Cardiovascular: negative: chest pain, palpitations, orthopnea, paroxysmal nocturnal dyspnea, edema, light headedness, other - Medications/Allergies Allergies/Adverse Reactions: Allergies Allergy/AdvReac Type Severity Reaction Status Date / Time codeine Allergy Verified 10/03/17 21:12 Medications: Current Medications Acetaminophen (Tylenol) 650 mg PO Q4H PRN PRN Reason: Headache/Fever or Pain Acetaminophen (Tylenol) 650 mg [place] Q4H PRN PRN Reason: Headache/Fever or Pain Alogliptin Benzoate (Alogliptin) 6.25 mg PO DAILY [facility] Last Admin: 10/14/17 09:21 Dose: 6.25 mg Alprazolam (Xanax) 0.125 mg PO TIDPRN PRN PRN Reason: Anxiety Alprazolam (Xanax) 0.25 mg PO HS PRN PRN Reason: Insomnia Aspirin (Ecotrin) 81 mg PO DAILY [facility] Last Admin: 10/14/17 09:21 Dose: 81 mg Atorvastatin Calcium (Lipitor) 10 mg PO HS [facility] Last Admin: 10/13/17 23:30 Dose: 10 mg Bisacodyl (Dulcolax) 10 mg PO DAILYPRN PRN PRN Reason: Constipation Cholecalciferol (Vitamin D3) 5,000 units PO DAILY [facility] Last Admin: 10/14/17 09:22 Dose: 5,000 units Coenzyme Q10 (Coenzyme Q10) 100 mg PO DAILY [facility] Last Admin: 10/14/17 09:26 Dose: 100 mg Dextrose/Water (Dextrose 50%) 25 gm SLOW IVP PRN PRN PRN Reason: Hypoglycemia Enoxaparin Sodium (Lovenox) 30 mg SC 0900 [facility] Last Admin: 10/14/17 09:34 Dose: 30 mg Fish Oil (Fish Oil) 1,000 mg PO DAILY [facility] Last Admin: 10/14/17 09:25 Dose: 1,000 mg Furosemide (Lasix) 40 mg SLOW IVP 0600,1400 [facility] Glucagon (Glucagon) 1 mg IM PRN PRN PRN Reason: Hypoglycemia Dextrose/Water (D5w) 1,000 mls @ 0 mls/hr IV .Q0M PRN; As Directed PRN Reason: Hypoglycemia Insulin Human Regular (Humulin R) 0 units SC .MILD SLIDING SCALE PRN PRN Reason: Mild Correctional Scale Insulin Human Regular (Humulin R) 0 units SC .BEDTIME SLIDING SC PRN PRN Reason: Bedtime Correctional Scale Metformin HCl (Glucophage Xr) 500 mg PO BID-[facility] Last Admin: 10/14/17 17:22 Dose: 500 mg Metoprolol Succinate (Toprol Xl) 25 mg PO DAILY [facility] Last Admin: 10/14/17 09:28 Dose: Not Given Olmesartan (Benicar) 40 mg PO DAILY [facility] Last Admin: 10/14/17 09:28 Dose: 40 mg Sodium Chloride (Flush - Normal Saline) 10 ml IVF PRN PRN PRN Reason: Saline Flush
[2017-10-14] MEDS: Atorvastatin Calcium 10 MG TAB PO SCH (20:46)
--- NOTE | 2017-10-14 22:51 | CON ---
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 She has a right pleural effusion is transudative based on recent tap. She had some shortness of breath yesterday, so she was sent to the emergency room. She said once the oxygen was applied her shortness of breath got better. She did not receive a diuretic pill. She had up to the floor per my discussion with her and her family. She does have a right effusion that has recurred, although it is not massive. I was consulted because of her effusion. PAST MEDICAL HISTORY: 1. Remarkable for diastolic cardiomyopathy. 2. Diabetes. 3. Hypertension. 4. History of hip replacement. 5. History of hysterectomy. 6. History of a lymph node biopsy and thoracentesis. FAMILY HISTORY: Negative for lung disease in early age. SOCIAL HISTORY: She does not smoke, does not drink, does not use drugs. ALLERGIES: She has no drug allergies. MEDICATIONS: Prior to admission, she was on aspirin, vitamin D, Lasix, metformin, metoprolol, Benicar, Zocor, Januvia, Coenzyme Q. REVIEW OF SYSTEMS: Ten points otherwise negative. She has been orthopneic. She is not orthopneic anymore today. She is lying flat in bed. Her family says she did gain 5 pounds over the last few days, which is consistent with a recurrent effusion. PHYSICAL EXAMINATION: GENERAL: Non Smoker VITAL SIGNS: Blood pressure is 127/58, heart rate 80, respiratory rate is 18, oximetry is 97. Oximetry is 95 on 2 liters. HEENT: Pupils are equal. Sclerae is anicteric. NECK: Supple. LUNGS: She has decreased breath sounds at her right base. HEART: Regular rhythm. ABDOMEN: Soft and nontender. EXTREMITIES: Without asymmetry. LABORATORY DATA: White count 5.8, hemoglobin 10.1, platelets 287,000. Sodium 130, potassium 4.1, chloride 96, bicarbonate 23, BUN 31, creatinine 1.5. Creatinine was 1.7 yesterday. Creatinine was 1.9 in June. When she went home, her creatinine was 1.28. IMPRESSION: 1. Diastolic heart failure with a right effusion that is transudative unlikely to be related to her amyloid or lymphoma. She does not need a thoracentesis. 2. Anxiety. Her rapid improvement with the placement of oxygen in the emergency room argues that she gets very anxious when she gets dyspneic and that something as simple as nasal cannula oxygen, relieving her dyspnea argues strongly that this is anxiety. She does have structural abnormalities that will make her short of breath, but nothing that was done from what I can tell in the ER, would relieve her dyspnea. No thoracentesis is indicated. Medications will be adjusted. I have a feeling , she is going to be complicated and have to live with an elevated creatinine, if she is adequately diuresed. This is a 50 minute consult greater than 50% of the time was spent on the unit coordinating care. TIFFANY
[2017-10-15 05:19] LABS: Anion Gap 9 mmol/L (10-20); BUN (Urea Nitrogen) 30 mg/dL (9.8-20.1); BUN/Creatinine Ratio 20.27; Calc. Creatinine Clearance 28 mL/min (70-130); Calcium 9.2 mg/dL (7.8-10.44); Carbon Dioxide 29 mmol/L (23-31); Chloride 97 mmol/L (98-107); Estimated GFR-MDRD 34; Glucose 93 mg/dL (83-110); Magnesium 1.5 mg/dL (1.6-2.6); Phosphorus 3.3 mg/dL (2.3-4.7); Potassium 4.1 mmol/L (3.5-5.1); Sodium 131 mmol/L (136-145)
[2017-10-15] MEDS: Furosemide 40 MG/4 ML VIAL SLOW IVP SCH ×2 (05:21→13:59)
[2017-10-15 06:12] LABS: Band 2 % (5-11); Eosinophils 1 % (0-10); Hemoglobin 9.8 g/dL (12.0-16.0); Lymphocytes 61 % (21-51); MDiff Complete? YES; Mean Corpuscular HGB CONC 33.2 g/dL (32.0-36.0); Mean Corpuscular Hemoglobin 30.9 pg (27.0-31.0); Mean Corpuscular Volume 93.1 fl (81.0-99.0); Mean Platelet Volume 7.5 fL (7.4-10.4); Monocytes 4 % (0-10); Neutrophil 32 % (42-75); Platelet Count 269 thou/uL (130-400); RBC Distribution Width 12.2 % (11.5-14.5); Red Blood Cell (RBC) Count 3.17 mill/uL (4.20-5.40)
[2017-10-15] MEDS: Alogliptin 6.25 MG TAB PO SCH (08:16)
[2017-10-15] MEDS: Ubidecarenone 50 MG CAP PO SCH (08:16)
[2017-10-15] MEDS: Enoxaparin Sodium 30 MG/0.3 ML SYRINGE SC SCH (08:16)
[2017-10-15] MEDS: Fish Oil 1,000 MG CAP PO SCH (08:16)
[2017-10-15] MEDS: Aspirin 81 mg Enteric Coated Tablet PO SCH (08:17)
[2017-10-15] MEDS: metFORMIN XR 500 MG TAB PO SCH ×2 (08:17→18:02)
[2017-10-15] MEDS ORDERED: Magnesium Sulfate 2 GM in Sodium Chloride 0.9% 100 ML IVPB SCH (10:30)
[2017-10-15] MEDS ORDERED: Magnesium 2 GM/NS 0.9% 100 ML 2 GM in Premix Bag 1 BAG IVPB SCH (11:00)
[2017-10-15] MEDS ORDERED: Loperamide HCl 2 MG CAP PO PRN (13:57)
--- NOTE | 2017-10-15 16:46 | PDOC.CTH ---
Cardiology Progress Note - Subjective She is doing better. - Objective Vital Signs Temp Pulse Pulse Pulse Resp BP BP 10/15/17 15:30 98.5 F 74 16 10/15/17 11:21 98 F 70 18 10/15/17 11:19 79 75 124/59 L 118/57 L 10/15/17 07:34 97.6 F 79 16 10/15/17 07:22 97.6 F 79 16 BP Pulse Ox Pulse Ox Pulse Ox 10/15/17 15:30 151/69 H 95 10/15/17 11:21 112/56 L 94 L 10/15/17 11:19 100 96 10/15/17 07:34 93 L 10/15/17 07:22 136/65 93 L Admit Weight 137 lb 4.8 oz Weight 138 lb 9.6 oz 10/14/17 10/15/17 10/16/17 06:59 06:59 06:59 Intake Total 120 1810 Output Total 875 1825 1200 Balance -464 -01 -1774 - Physical Examination General/Neuro: alert & oriented x3, NAD Neck: no JVD present Lungs: CTA, unlabored respirations Heart: RRR Abdomen: NT/ND Extremities: + edema B (Trace) - Telemetry Telemetry Rhythm: NSR - Labs Result Diagrams: 10/15/17 04:23 10/15/17 04:23 Troponin/CKMB CK-MB (CK-2) 1.3 ng/mL (0-6.6) 10/13/17 17:07 Troponin I 0.178 ng/mL (< 0.028) H 10/13/17 17:07 - Assessment/Plan !. Acute on chronic diastolic heart failure. 2. Amyloidosis 3. Amyloid heart. 4. Lymphoma 5. HTN. PLAN: - Will switch her Lasix to PO today. - Continue other meds.
--- NOTE | 2017-10-15 18:54 | PDOC.PN ---
- Subjective Encounter Start Date: 10/15/17 Encounter Start Time: 11:30 Patient seen and examined. No new complaints. No overnight events. SOB improving. ?dark stool - Objective Resuscitation Status: Resuscitation Status DNR:Do Not Resuscitate MAR Reviewed: Yes Vital Signs & Weight: Vital Signs (12 hours) Temp Pulse Pulse Pulse Resp BP BP 10/15/17 15:30 98.5 F 74 16 10/15/17 11:21 98 F 70 18 10/15/17 11:19 79 75 124/59 L 118/57 L 10/15/17 07:34 97.6 F 79 16 10/15/17 07:22 97.6 F 79 16 BP Pulse Ox Pulse Ox Pulse Ox 10/15/17 15:30 151/69 H 95 10/15/17 11:21 112/56 L 94 L 10/15/17 11:19 100 96 10/15/17 07:34 93 L 10/15/17 07:22 136/65 93 L Weight Admit Weight 137 lb 4.8 oz Weight 138 lb 9.6 oz I&O: 10/14/17 10/15/17 10/16/17 06:59 06:59 06:59 Intake Total 120 1810 1440 Output Total 875 1825 1900 [facility] -755 -15 -460 Result Diagrams: 10/15/17 04:23 10/15/17 04:23 Additional Labs: Accuchecks 10/15/17 10/15/17 10/14/17 10:34 05:27 20:43 POC Glucose 134 H 98 125 H 10/14/17 20:17 POC Glucose 282 H EKG Reviewed by me: Yes (Tele SR) Phys Exam - Physical Examination Constitutional: NAD Respiratory: no wheezing, no rhonchi Cardiovascular: RRR, no rub Gastrointestinal: soft, non-tender, positive bowel sounds Musculoskeletal: edema present (improving) Neurological: moves all 4 limbs Dx/Plan - Plan DVT proph w/SCDs IMPRESSION: 1. Acute on chronic diastolic heart failure 2. B/L Pleural effusion 3. HTN 4. DM2 5. Anxiety/Lymphoma/Amylodosis 6. ? Dark stool / Hypomagnesemia PLAN: * DC Lovenox * Check stool for occult blood * Cont diuresis per Cardiology * AM labs * Cardio/Pulm following * Cont to monitor * Replace Mg * DC Metoprolol (Patient was instructed to dc Metoprolol due to bradycardia in the past) Review of Systems - Review of Systems Respiratory: negative: Cough, Dry, Shortness of Breath, Hemoptysis, SOB with Excertion, Pleuritic Pain, Sputum, Wheezing Cardiovascular: negative: chest pain, palpitations, orthopnea, paroxysmal nocturnal dyspnea, edema, light headedness, other Gastrointestinal: Melena (??). negative: Nausea, Vomiting, Abdominal Pain, Diarrhea, Constipation, Hematochezia, Other - Medications/Allergies Allergies/Adverse Reactions: Allergies Allergy/AdvReac Type Severity Reaction Status Date / Time codeine Allergy Verified 10/15/17 18:49 metoprolol Allergy Verified 10/15/17 18:48 Medications: Current Medications Acetaminophen (Tylenol) 650 mg PO Q4H PRN PRN Reason: Headache/Fever or Pain Acetaminophen (Tylenol) 650 mg [place] Q4H PRN PRN Reason: Headache/Fever or Pain Alogliptin Benzoate (Alogliptin) 6.25 mg PO DAILY [facility] Last Admin: 10/15/17 08:16 Dose: 6.25 mg Alprazolam (Xanax) 0.125 mg PO TIDPRN PRN PRN Reason: Anxiety Alprazolam (Xanax) 0.25 mg PO HS PRN PRN Reason: Insomnia Last Admin: 10/14/17 20:51 Dose: 0.25 mg Aspirin (Ecotrin) 81 mg PO DAILY [facility] Last Admin: 10/15/17 08:17 Dose: 81 mg Atorvastatin Calcium (Lipitor) 10 mg PO HS [facility] Last Admin: 10/14/17 20:46 Dose: 10 mg Bisacodyl (Dulcolax) 10 mg PO DAILYPRN PRN PRN Reason: Constipation Cholecalciferol (Vitamin D3) 5,000 units PO DAILY [facility] Last Admin: 10/15/17 08:16 Dose: 5,000 units Coenzyme Q10 (Coenzyme Q10) 100 mg PO DAILY [facility] Last Admin: 10/15/17 08:16 Dose: 100 mg Dextrose/Water (Dextrose 50%) 25 gm SLOW IVP PRN PRN PRN Reason: Hypoglycemia Fish Oil (Fish Oil) 1,000 mg PO DAILY [facility] Last Admin: 10/15/17 08:16 Dose: 1,000 mg Furosemide (Lasix) 80 mg PO 0900,1400 [facility] Glucagon (Glucagon) 1 mg IM PRN PRN PRN Reason: Hypoglycemia Dextrose/Water (D5w) 1,000 mls @ 0 mls/hr IV .Q0M PRN; As Directed PRN Reason: Hypoglycemia Loperamide HCl (Imodium) 2 mg PO PRN PRN PRN Reason: Diarrhea/Loose Stools Metformin HCl (Glucophage Xr) 500 mg PO BID-[facility] Last Admin: 10/15/17 18:02 Dose: 500 mg Olmesartan (Benicar) 40 mg PO DAILY [facility] Last Admin: 10/15/17 08:16 Dose: 40 mg Sodium Chloride (Flush - Normal Saline) 10 ml IVF PRN PRN PRN Reason: Saline Flush
--- NOTE | 2017-10-15 19:57 | PRG ---
DATE OF SERVICE: 10/15/2017 SUBJECTIVE: Ms. Nikki Carson is stable. OBJECTIVE: VITAL SIGNS: She is afebrile. Heart rate 74, oximetry is 95% on room air and blood pressure 124/59. LUNGS: Clear with the exception of decreased breath sounds at her right base. HEART: Regular rhythm. ABDOMEN: Soft. IMPRESSION: 1. Diastolic dysfunction. 2. Amyloidosis. 3. Anemia of chronic disease. 4. MALT tumor. PLAN: Supportive care. The family has opted to go home for comfort. She appears to be medically st able for discharge. She will actually request oxygen, although she does not qualify for now based on the room air O2 sat. She feels extremely secured wearing oxygen in the hospital and I suspect she w ould desaturate with exercise to qualify. Her malignancy may qualify her as well. Planning for discharge with oxygen in her home care needs is probably appropriate at this point. I rain [place] think that getting her home within the next day or two would be appropriate as well. I met with the family and answered all their questions.
[2017-10-15] MEDS: Atorvastatin Calcium 10 MG TAB PO SCH (22:41)
[2017-10-16 05:11] LABS: #Basophils 0.1 thou/uL (0.0-0.2); #Eosinphils 0.1 thou/uL (0.0-0.7); #Lymphocytes 3.6 thou/uL (1.20-3.40); #Monocytes 0.6 thou/uL (0.11-0.59); #Neutrophils 3.5 thou/uL (1.40-6.50); %Basophils 0.7 % (0.0-1.0); %Eosinophils 1.2 % (0.0-10.0); %Lymphocytes 45.3 % (21.0-51.0); %Monocytes 7.6 % (0.0-10.0); %Neutrophils 45.2 % (42.0-75.0); Hemoglobin 10.7 g/dL (12.0-16.0); Mean Corpuscular HGB CONC 33.1 g/dL (32.0-36.0); Mean Corpuscular Hemoglobin 30.8 pg (27.0-31.0); Mean Corpuscular Volume 92.9 fl (81.0-99.0); Mean Platelet Volume 7.5 fL (7.4-10.4); Platelet Count 291 thou/uL (130-400); RBC Distribution Width 12.1 % (11.5-14.5); Red Blood Cell (RBC) Count 3.49 mill/uL (4.20-5.40); White Blood Cell (WBC) Count 7.8 thou/uL (4.8-10.8)
[2017-10-16 05:35] LABS: Albumin 3.1 g/dL (3.4-4.8); Anion Gap 13 mmol/L (10-20); BUN (Urea Nitrogen) 29 mg/dL (9.8-20.1); BUN/Creatinine Ratio 19.08; Calc. Creatinine Clearance 27 mL/min (70-130); Calcium 9.4 mg/dL (7.8-10.44); Carbon Dioxide 26 mmol/L (23-31); Chloride 96 mmol/L (98-107); Estimated GFR-MDRD 33; Glucose 102 mg/dL (83-110); Magnesium 1.9 mg/dL (1.6-2.6); Potassium 4.3 mmol/L (3.5-5.1); Sodium 131 mmol/L (136-145)
[2017-10-16] MEDS: Ubidecarenone 50 MG CAP PO SCH (08:42)
[2017-10-16] MEDS: Alogliptin 6.25 MG TAB PO SCH (08:42)
[2017-10-16] MEDS: Furosemide 80 MG TAB PO SCH ×2 (08:43→14:01)
[2017-10-16] MEDS: metFORMIN XR 500 MG TAB PO SCH ×2 (08:43→16:35)
[2017-10-16] MEDS: Fish Oil 1,000 MG CAP PO SCH (08:43)
[2017-10-16] MEDS: Aspirin 81 mg Enteric Coated Tablet PO SCH (08:43)
--- NOTE | 2017-10-16 14:39 | PDOC.PN ---
- Subjective Encounter Start Date: 10/16/17 Encounter Start Time: 11:00 Patient seen and examined. No new complaints. No overnight events. SOB improving. - Objective Resuscitation Status: Resuscitation Status DNR:Do Not Resuscitate MAR Reviewed: Yes Vital Signs & Weight: Vital Signs (12 hours) Temp Pulse Pulse Pulse Resp BP BP 10/16/17 12:27 78 75 136/66 124/60 10/16/17 11:46 97.9 F 70 14 10/16/17 08:00 97.6 F 75 18 10/16/17 07:50 97.6 F 75 18 10/16/17 04:00 97.6 F 75 16 BP Pulse Ox Pulse Ox Pulse Ox 10/16/17 12:27 96 94 L 10/16/17 11:46 118/58 L 96 10/16/17 08:00 94 L 10/16/17 07:50 121/63 94 L 10/16/17 04:00 134/64 95 Weight Admit Weight 137 lb 4.8 oz Weight 139 lb 8 oz I&O: 10/15/17 10/16/17 10/17/17 06:59 06:59 06:59 Intake Total 1810 1440 Output Total 1825 2400 Balance -15 -960 Result Diagrams: 10/16/17 04:57 10/16/17 04:57 EKG Reviewed by me: Yes (Tele SR) Phys Exam - Physical Examination Constitutional: NAD Respiratory: no wheezing, no rhonchi Scat rales at bases Cardiovascular: RRR, no rub Gastrointestinal: soft, non-tender, positive bowel sounds Musculoskeletal: edema present (improving) Neurological: moves all 4 limbs Dx/Plan - Plan DVT proph w/SCDs IMPRESSION: 1. Acute on chronic diastolic heart failure - improving 2. B/L Pleural effusion - prob due to #1 3. HTN 4. DM2 - not on glucose check per patient request 5. Anxiety/Lymphoma/Amylodosis 6. Hypomagnesemia - replaced PLAN: * Cont diuresis per Cardiology * AM labs on 10/18 * Cardio/Pulm following * Cont to monitor * Change Xanax to HS per patient/daughter request. Review of Systems - Review of Systems Cardiovascular: negative: chest pain, palpitations, orthopnea, paroxysmal nocturnal dyspnea, edema, light headedness, other Gastrointestinal: negative: Nausea, Vomiting, Abdominal Pain, Diarrhea, Constipation, Melena, Hematochezia, Other - Medications/Allergies Allergies/Adverse Reactions: Allergies Allergy/AdvReac Type Severity Reaction Status Date / Time codeine Allergy Verified 10/15/17 18:49 metoprolol Allergy Verified 10/15/17 18:48 Medications: Current Medications Acetaminophen (Tylenol) 650 mg PO Q4H PRN PRN Reason: Headache/Fever or Pain Acetaminophen (Tylenol) 650 mg [place] Q4H PRN PRN Reason: Headache/Fever or Pain Alogliptin Benzoate (Alogliptin) 6.25 mg PO DAILY [facility] Last Admin: 10/16/17 08:42 Dose: 6.25 mg Alprazolam (Xanax) 0.125 mg PO TIDPRN PRN PRN Reason: Anxiety Last Admin: 10/15/17 22:52 Dose: 0.125 mg Alprazolam (Xanax) 0.25 mg PO HS PRN PRN Reason: Insomnia Last Admin: 10/14/17 20:51 Dose: 0.25 mg Alprazolam (Xanax) 0.25 mg PO HS [facility] Aspirin (Ecotrin) 81 mg PO DAILY [facility] Last Admin: 10/16/17 08:43 Dose: 81 mg Atorvastatin Calcium (Lipitor) 10 mg PO HS [facility] Last Admin: 10/15/17 22:41 Dose: 10 mg Bisacodyl (Dulcolax) 10 mg PO DAILYPRN PRN PRN Reason: Constipation Cholecalciferol (Vitamin D3) 5,000 units PO DAILY [facility] Last Admin: 10/16/17 08:42 Dose: 5,000 units Coenzyme Q10 (Coenzyme Q10) 100 mg PO DAILY [facility] Last Admin: 10/16/17 08:42 Dose: 100 mg Dextrose/Water (Dextrose 50%) 25 gm SLOW IVP PRN PRN PRN Reason: Hypoglycemia Fish Oil (Fish Oil) 1,000 mg PO DAILY [facility] Last Admin: 10/16/17 08:43 Dose: 1,000 mg Furosemide (Lasix) 80 mg PO 0900,1400 [facility] Last Admin: 10/16/17 14:01 Dose: 80 mg Glucagon (Glucagon) 1 mg IM PRN PRN PRN Reason: Hypoglycemia Dextrose/Water (D5w) 1,000 mls @ 0 mls/hr IV .Q0M PRN; As Directed PRN Reason: Hypoglycemia Loperamide HCl (Imodium) 2 mg PO PRN PRN PRN Reason: Diarrhea/Loose Stools Metformin HCl (Glucophage Xr) 500 mg PO BID-[facility] Last Admin: 10/16/17 08:43 Dose: 500 mg Olmesartan (Benicar) 40 mg PO DAILY [facility] Last Admin: 10/16/17 08:42 Dose: 40 mg Sodium Chloride (Flush - Normal Saline) 10 ml IVF PRN PRN PRN Reason: Saline Flush
--- NOTE | 2017-10-16 15:11 | PDOC.CTH ---
Cardiology Progress Note - Subjective SHe is doing better. She has diuresed a little less with PO but still not accumulating any fluid. She had a walk with PT and did well but did desaturate and will need home O2. - Objective Vital Signs Temp Pulse Pulse Pulse Resp BP BP 10/16/17 12:27 78 75 136/66 124/60 10/16/17 11:46 97.9 F 70 14 10/16/17 08:00 97.6 F 75 18 10/16/17 07:50 97.6 F 75 18 10/16/17 04:00 97.6 F 75 16 BP Pulse Ox Pulse Ox Pulse Ox 10/16/17 12:27 96 94 L 10/16/17 11:46 118/58 L 96 10/16/17 08:00 94 L 10/16/17 07:50 121/63 94 L 10/16/17 04:00 134/64 95 Admit Weight 137 lb 4.8 oz Weight 139 lb 8 oz 10/15/17 10/16/17 10/17/17 06:59 06:59 06:59 Intake Total 1810 1440 Output Total 1825 2400 Balance -15 -960 - Physical Examination General/Neuro: alert & oriented x3, NAD Neck: no JVD present Lungs: CTA, unlabored respirations Heart: RRR Abdomen: NT/ND Extremities: + edema B (1+) - Telemetry Telemetry Rhythm: NSR - Labs Result Diagrams: 10/16/17 04:57 10/16/17 04:57 Troponin/CKMB CK-MB (CK-2) 1.3 ng/mL (0-6.6) 10/13/17 17:07 Troponin I 0.178 ng/mL (< 0.028) H 10/13/17 17:07 - Assessment/Plan !. Acute on chronic diastolic heart failure. 2. Amyloidosis 3. Amyloid heart. 4. Lymphoma 5. HTN. 6. Hypoxia PLAN: - Continue PO lasix. - Will try to get her Home O2. - She had several questions about her current status and more so about what to expect. She does not wish to do any heroic measures if it comes to that. She would also consider Home with palliative care if appropriate. Currently would only continue to try to keep her dry at home and keep her anxiety and BP at bay. - Home soon.
[2017-10-16] MEDS: Atorvastatin Calcium 10 MG TAB PO SCH (20:35)
[2017-10-16] MEDS: ALPRAZolam 0.25 MG TAB PO SCH (20:35)
[2017-10-17 05:26] LABS: Hemoglobin 10.2 g/dL (12.0-16.0); Platelet Count 249 thou/uL (130-400)
[2017-10-17] MEDS: metFORMIN XR 500 MG TAB PO SCH ×2 (07:41→17:07)
[2017-10-17] MEDS: Aspirin 81 mg Enteric Coated Tablet PO SCH (07:41)
[2017-10-17] MEDS: Furosemide 80 MG TAB PO SCH (07:41)
[2017-10-17] MEDS: Fish Oil 1,000 MG CAP PO SCH (07:43)
[2017-10-17] MEDS: Ubidecarenone 50 MG CAP PO SCH (07:43)
[2017-10-17] MEDS: Alogliptin 6.25 MG TAB PO SCH (07:43)
--- NOTE | 2017-10-17 12:23 | PRG ---
DATE OF SERVICE: 10/17/2017 Ms. Carson is afebrile, heart rate 72, respiratory rate is 18, oximetry is 97 on 2 liters, blood press ure 141/63. She qualified for oxygen with ambulatory desaturation. Ms. Carson is unusual in that she actually likes wearing oxygen and it makes her feel safe. PHYSICAL EXAMINATION: LUNGS: Today her lungs are still remarkable for decreased breath sounds at her right base. CARDIOVASCULAR: Regular rhythm. ABDOMEN: Soft. Intake and output is negative 290 mL. IMPRESSION: 1. Volume overload secondary to diastolic dysfunction. 2. Amyloidosis. 3. MALT tumor (lymphoma). PLAN: Discharge planning for home care. I will be happy to see her as an outpatient at any time.
--- NOTE | 2017-10-17 13:39 | PDOC.CTH ---
Cardiology Progress Note - Subjective She is doing well. her breathing is better. Still needing O2 supplementation. She has diuresed well with current lasix dose. - Objective Vital Signs Temp Pulse Pulse Pulse Resp BP BP 10/17/17 11:50 97.9 F 72 18 10/17/17 09:55 78 74 141/63 H 122/58 L 10/17/17 07:45 97.6 F 76 18 10/17/17 07:36 97.6 F 76 18 10/17/17 03:43 97.5 F L 72 12 BP Pulse Ox Pulse Ox Pulse Ox 10/17/17 11:50 113/56 L 97 10/17/17 09:55 96 98 10/17/17 07:45 95 10/17/17 07:36 121/60 95 10/17/17 03:43 113/56 L 95 Admit Weight 137 lb 4.8 oz Weight 135 lb 3.2 oz 10/16/17 10/17/17 10/18/17 06:59 06:59 06:59 Intake Total 1440 960 200 Output Total 2400 1250 2000 Balance -960 -290 -1800 - Physical Examination General/Neuro: alert & oriented x3, NAD Neck: no JVD present Lungs: CTA, unlabored respirations Heart: RRR Abdomen: NT/ND Extremities: + edema B (1+) - Telemetry Telemetry Rhythm: NSR - Labs Result Diagrams: 10/17/17 04:53 10/16/17 04:57 Troponin/CKMB CK-MB (CK-2) 1.3 ng/mL (0-6.6) 10/13/17 17:07 Troponin I 0.178 ng/mL (< 0.028) H 10/13/17 17:07 - Assessment/Plan 1. Acute on chronic diastolic heart failure. 2. Amyloidosis 3. Amyloid heart. 4. Lymphoma 5. HTN. 6. Hypoxia PLAN: - Continue PO lasix. Will switch to 80 mg in AM and 40 mg in PM. - Will see if she qualifies for Home O2. - She is no longer interested in undergoing chemotherapy for Lymphoma. - She may want to do Palliative care. - She saw Rox Olivas on TV today announcing she was going on palliative care and she states she feels exactly the same way and that is also what she wants for herself. - Family has decided on [facility] hosp[facility] care if it comes to this. - Currently my plan is to try to find a balance on her fluid to get her home and keep her home. - Likely home tomorrow.
[2017-10-17] MEDS: Furosemide 40 MG TAB PO SCH (13:49)
--- NOTE | 2017-10-17 20:16 | PDOC.PN ---
- Subjective Encounter Start Date: 10/17/17 Encounter Start Time: 11:00 Patient seen and examined. No new complaints. No overnight events. SOB improving - Objective Resuscitation Status: Resuscitation Status DNR:Do Not Resuscitate MAR Reviewed: Yes Vital Signs & Weight: Vital Signs (12 hours) Temp Pulse Pulse Pulse Resp BP BP 10/17/17 16:36 98.1 F 73 17 10/17/17 11:50 97.9 F 72 18 10/17/17 09:55 78 74 141/63 H 122/58 L BP Pulse Ox Pulse Ox Pulse Ox 10/17/17 16:36 124/55 L 93 L 10/17/17 11:50 113/56 L 97 10/17/17 09:55 96 98 Weight Admit Weight 137 lb 4.8 oz Weight 135 lb 3.2 oz I&O: 10/16/17 10/17/17 10/18/17 06:59 06:59 06:59 Intake Total 1440 960 200 Output Total 2400 1250 2000 Balance -960 -290 -1800 Result Diagrams: 10/17/17 04:53 10/18/17 04:36 EKG Reviewed by me: Yes (Tele SR) Phys Exam - Physical Examination Constitutional: NAD Respiratory: no wheezing, no rhonchi Bibasilar rales Cardiovascular: RRR, no rub Gastrointestinal: soft, non-tender, positive bowel sounds Neurological: moves all 4 limbs Dx/Plan - Plan DVT proph w/SCDs IMPRESSION: 1. Acute on chronic diastolic heart failure - improving 2. B/L Pleural effusion - prob due to #1 3. HTN 4. DM2 - not on glucose check per patient request 5. Anxiety/Lymphoma/Amylodosis 6. Hypomagnesemia - replaced / JOSH on CKD 3 - Prob due to Cardiorenal syndrome - present on admission - stable PLAN: * Hospice Eval * Cont Lasix per Cardiology * AM labs * Cardio/Pulm following * Cont current meds as below * Declining Chemo * Home O2 eval * NATHANAEL Pearce in AM Review of Systems - Review of Systems Respiratory: SOB with Excertion. negative: Cough, Dry, Shortness of Breath, Hemoptysis, Pleuritic Pain, Sputum, Wheezing Cardiovascular: negative: chest pain, palpitations, orthopnea, paroxysmal nocturnal dyspnea, edema, light headedness, other Gastrointestinal: negative: Nausea, Vomiting, Abdominal Pain, Diarrhea, Constipation, Melena, Hematochezia, Other - Medications/Allergies Allergies/Adverse Reactions: Allergies Allergy/AdvReac Type Severity Reaction Status Date / Time codeine Allergy Verified 10/15/17 18:49 metoprolol Allergy Verified 10/15/17 18:48 Medications: Current Medications Acetaminophen (Tylenol) 650 mg PO Q4H PRN PRN Reason: Headache/Fever or Pain Acetaminophen (Tylenol) 650 mg [place] Q4H PRN PRN Reason: Headache/Fever or Pain Alogliptin Benzoate (Alogliptin) 6.25 mg PO DAILY [facility] Last Admin: 10/17/17 07:43 Dose: 6.25 mg Alprazolam (Xanax) 0.125 mg PO TIDPRN PRN PRN Reason: Anxiety Last Admin: 10/15/17 22:52 Dose: 0.125 mg Alprazolam (Xanax) 0.25 mg PO HS PRN PRN Reason: Insomnia Last Admin: 10/14/17 20:51 Dose: 0.25 mg Alprazolam (Xanax) 0.25 mg PO HS [facility] Last Admin: 10/16/17 20:35 Dose: 0.25 mg Aspirin (Ecotrin) 81 mg PO DAILY [facility] Last Admin: 10/17/17 07:41 Dose: 81 mg Atorvastatin Calcium (Lipitor) 10 mg PO HS [facility] Last Admin: 10/16/17 20:35 Dose: 10 mg Bisacodyl (Dulcolax) 10 mg PO DAILYPRN PRN PRN Reason: Constipation Cholecalciferol (Vitamin D3) 5,000 units PO DAILY [facility] Last Admin: 10/17/17 07:41 Dose: 5,000 units Coenzyme Q10 (Coenzyme Q10) 100 mg PO DAILY [facility] Last Admin: 10/17/17 07:43 Dose: 100 mg Dextrose/Water (Dextrose 50%) 25 gm SLOW IVP PRN PRN PRN Reason: Hypoglycemia Fish Oil (Fish Oil) 1,000 mg PO DAILY [facility] Last Admin: 10/17/17 07:43 Dose: 1,000 mg Furosemide (Lasix) 40 mg PO 1400 [facility] Last Admin: 10/17/17 13:49 Dose: 40 mg Furosemide (Lasix) 80 mg PO 0900 [facility] Glucagon (Glucagon) 1 mg IM PRN PRN PRN Reason: Hypoglycemia Dextrose/Water (D5w) 1,000 mls @ 0 mls/hr IV .Q0M PRN; As Directed PRN Reason: Hypoglycemia Loperamide HCl (Imodium) 2 mg PO PRN PRN PRN Reason: Diarrhea/Loose Stools Metformin HCl (Glucophage Xr) 500 mg PO BID-[facility] Last Admin: 10/17/17 17:07 Dose: 500 mg Olmesartan (Benicar) 40 mg PO DAILY [facility] Last Admin: 10/17/17 07:42 Dose: 40 mg Sodium Chloride (Flush - Normal Saline) 10 ml IVF PRN PRN PRN Reason: Saline Flush
[2017-10-17] MEDS: ALPRAZolam 0.25 MG TAB PO SCH (20:19)
[2017-10-17] MEDS: Atorvastatin Calcium 10 MG TAB PO SCH (20:19)
[2017-10-18 05:44] LABS: Anion Gap 14 mmol/L (10-20); BUN (Urea Nitrogen) 34 mg/dL (9.8-20.1); Calc. Creatinine Clearance 26 mL/min (70-130); Calcium 9.1 mg/dL (7.8-10.44); Carbon Dioxide 26 mmol/L (23-31); Chloride 97 mmol/L (98-107); Estimated GFR-MDRD 33; Glucose 93 mg/dL (83-110); Magnesium 1.6 mg/dL (1.6-2.6); Potassium 3.9 mmol/L (3.5-5.1); Sodium 133 mmol/L (136-145)
[2017-10-18] MEDS: Magnesium Chloride 64 MG TAB PO SCH ×2 (08:56→21:17)
[2017-10-18] MEDS: Alogliptin 6.25 MG TAB PO SCH (08:57)
[2017-10-18] MEDS: Ubidecarenone 50 MG CAP PO SCH (08:57)
[2017-10-18] MEDS: metFORMIN XR 500 MG TAB PO SCH ×2 (08:57→16:46)
[2017-10-18] MEDS: Furosemide 80 MG TAB PO SCH (08:58)
[2017-10-18] MEDS: Aspirin 81 mg Enteric Coated Tablet PO SCH (08:58)
[2017-10-18] MEDS: Fish Oil 1,000 MG CAP PO SCH (09:03)
--- NOTE | 2017-10-18 10:55 | PQF ---
CLINICAL DOCUMENTATION IMPROVEMENT CLARIFICATION FORM: ICD-10 Updated PLEASE DO AN ADDENDUM TO THE PROGRESS NOTE WITH ANY DOCUMENTATION UPDATES OR ADDITIONS AND CARRY THROUGH TO DC SUMMARY. THANK YOU. DATE: 10/18/17 ATTN: Dr. Craig Please exercise your independent, professional judgment in responding to the clarification form. Clinical indicators are provided on the bottom of this form for your review Please check appropriate box(s): [ ] Associated Diagnosis: [ ] Other diagnosis [ ] Unable to determine In addition, please specify: Present on Admission (POA): [ ] Yes [ ] No [ ] Unable to determine For continuity of documentation, please document condition throughout progress notes and discharge summary. Thank You. CLINICAL INDICATORS - SIGNS / SYMPTOMS/ LABS are present in the medical record: 10/13 10/15 10/18 LABS: CREATININE 1.70 1.48 1.52 ESTIMATED GFR 29 34 33 H&P: ELEVATED CREATININE OF 1.70, LAST CREATININE WAS 1.28 ON 10/06/2017. PULMONOLOGY CONSULT: CREATININE WAS 1.9 IN JUNE. RISKS: H&P:HOSPITALIZED FROM 10/03 TO 10/06 OF THIS YR FOR ACUTE ON CHRONIC DIASTOLIC CHF, ACUTE KIDNEY INJURY D/T DIURETIC THERAPY & R PLEURAL EFFUSION. HX DM, HTN & LYMPHOMA. TREATMENT: CPOE /12 CMP CPOE /12 BMP ON 10/14 CPOE 4/15 BMP ON 10/18 Thank you, Glenna (This form is maintained as a part of the permanent medical record) 2015 [employer] All Rights Reserved Glenna Lucas RN, BSN [email or web address] Office: [phone] [facility]
[2017-10-18] MEDS: Furosemide 40 MG TAB PO SCH (14:08)
--- NOTE | 2017-10-18 18:46 | PDOC.CTH ---
Cardiology Progress Note - Subjective She diuresed well yesterday. [facility] care came to talk to them today and they have decided they want to go this route. - Objective Vital Signs Temp Pulse Pulse Pulse Resp BP BP 10/18/17 16:41 98.1 F 91 16 10/18/17 13:00 98 F 72 16 10/18/17 10:19 89 71 148/64 H 119/56 L 10/18/17 07:25 97.8 F 76 16 10/18/17 07:22 97.8 F 76 16 BP Pulse Ox Pulse Ox Pulse Ox 10/18/17 16:41 139/66 98 10/18/17 13:00 121/57 L 95 10/18/17 10:19 97 94 L 10/18/17 07:25 92 L 10/18/17 07:22 126/58 L 92 L Admit Weight 137 lb 4.8 oz Weight 136 lb 8 oz 10/17/17 10/18/17 10/19/17 06:59 06:59 06:59 Intake Total 960 920 Output Total 1250 4300 Balance -290 -3380 - Physical Examination General/Neuro: alert & oriented x3, NAD Neck: no JVD present Lungs: unlabored respirations Heart: RRR Abdomen: NT/ND Extremities: + edema B (trace) - Telemetry Telemetry Rhythm: NSR - Labs Result Diagrams: 10/17/17 04:53 10/18/17 04:36 Troponin/CKMB CK-MB (CK-2) 1.3 ng/mL (0-6.6) 10/13/17 17:07 Troponin I 0.178 ng/mL (< 0.028) H 10/13/17 17:07 - Assessment/Plan 1. Acute on chronic diastolic heart failure. 2. Amyloidosis 3. Amyloid heart. 4. Lymphoma 5. HTN. 6. Hypoxia PLAN: - Continue PO lasix at 80 mg in AM and 40 mg in PM with metolazone at 2.5 mg on Tuesdays and Fridays and as needed. - She is no longer interested in undergoing chemotherapy for Lymphoma. - Home with palliative care.
--- NOTE | 2017-10-18 20:47 | RAD ---
CHEST PA AND LATERAL: 10/18/17 HISTORY: 87-year-old female. Followup pleural effusion. COMPARISON: 10/06/17. FINDINGS: There is marked worsening of bilateral pleural effusions, greater on the right side as well as some p atchy bilateral perihilar parenchymal changes and some infrahilar parenchymal changes which may be mo re marked as well. Heart size is at least borderline. IMPRESSION: Definite worsening of right and left pleural effusions, larger on the right side with some patchy bharat ateral parenchymal changes. Continued followup for complete clearing. POS: RRE
[2017-10-18] MEDS: Atorvastatin Calcium 10 MG TAB PO SCH (21:17)
[2017-10-18] MEDS: ALPRAZolam 0.25 MG TAB PO SCH (21:17)
--- NOTE | 2017-10-18 22:02 | PDOC.PN ---
- Subjective Encounter Start Date: 10/18/17 Encounter Start Time: 18:00 Patient seen and examined. No new complaints. No overnight events. Feels better. - Objective Resuscitation Status: Resuscitation Status DNR:Do Not Resuscitate MAR Reviewed: Yes Vital Signs & Weight: Vital Signs (12 hours) Temp Pulse Pulse Pulse Resp BP BP 10/18/17 16:41 98.1 F 91 16 10/18/17 13:00 98 F 72 16 10/18/17 10:19 89 71 148/64 H 119/56 L BP Pulse Ox Pulse Ox Pulse Ox 10/18/17 16:41 139/66 98 10/18/17 13:00 121/57 L 95 10/18/17 10:19 97 94 L Weight Admit Weight 137 lb 4.8 oz Weight 136 lb 8 oz I&O: 10/17/17 10/18/17 10/19/17 06:59 06:59 06:59 Intake Total 567 921 6608 Output Total 1250 4300 Balance -290 -3380 1200 Result Diagrams: 10/17/17 04:53 10/18/17 04:36 EKG Reviewed by me: Yes (Tele SR) Phys Exam - Physical Examination Constitutional: NAD Respiratory: no wheezing, no rhonchi Cardiovascular: RRR, no rub Gastrointestinal: soft, non-tender, positive bowel sounds Musculoskeletal: no edema Dx/Plan - Plan DVT proph w/SCDs IMPRESSION: 1. Acute on chronic diastolic heart failure - improving 2. B/L Pleural effusion - prob due to #1 3. HTN 4. DM2 - not on glucose check per patient request 5. Anxiety/Lymphoma - declining Chemo/Amylodosis 6. Hypomagnesemia - replaced / JOSH on CKD 3 - Prob due to Cardiorenal syndrome - present on admission - stable PLAN: * Await Hospice Eval * DC after home hospice setup and if ok with consultants * Cardio/Pulm following * Cont current meds as below * Home O2 Review of Systems - Review of Systems Respiratory: negative: Cough, Dry, Shortness of Breath, Hemoptysis, SOB with Excertion, Pleuritic Pain, Sputum, Wheezing Cardiovascular: negative: chest pain, palpitations, orthopnea, paroxysmal nocturnal dyspnea, edema, light headedness, other - Medications/Allergies Allergies/Adverse Reactions: Allergies Allergy/AdvReac Type Severity Reaction Status Date / Time codeine Allergy Verified 10/15/17 18:49 metoprolol Allergy Verified 10/15/17 18:48 Medications: Current Medications Acetaminophen (Tylenol) 650 mg PO Q4H PRN PRN Reason: Headache/Fever or Pain Acetaminophen (Tylenol) 650 mg IN Q4H PRN PRN Reason: Headache/Fever or Pain Alogliptin Benzoate (Alogliptin) 6.25 mg PO DAILY [facility] Last Admin: 10/18/17 08:57 Dose: 6.25 mg Alprazolam (Xanax) 0.125 mg PO TIDPRN PRN PRN Reason: Anxiety Last Admin: 10/15/17 22:52 Dose: 0.125 mg Alprazolam (Xanax) 0.25 mg PO HS PRN PRN Reason: Insomnia Last Admin: 10/14/17 20:51 Dose: 0.25 mg Alprazolam (Xanax) 0.25 mg PO HS [facility] Last Admin: 10/18/17 21:17 Dose: 0.25 mg Aspirin (Ecotrin) 81 mg PO DAILY [facility] Last Admin: 10/18/17 08:58 Dose: 81 mg Atorvastatin Calcium (Lipitor) 10 mg PO HS [facility] Last Admin: 10/18/17 21:17 Dose: 10 mg Bisacodyl (Dulcolax) 10 mg PO DAILYPRN PRN PRN Reason: Constipation Cholecalciferol (Vitamin D3) 5,000 units PO DAILY [facility] Last Admin: 10/18/17 08:58 Dose: 5,000 units Coenzyme Q10 (Coenzyme Q10) 100 mg PO DAILY [facility] Last Admin: 10/18/17 08:57 Dose: 100 mg Dextrose/Water (Dextrose 50%) 25 gm SLOW IVP PRN PRN PRN Reason: Hypoglycemia Fish Oil (Fish Oil) 1,000 mg PO DAILY [facility] Last Admin: 10/18/17 09:03 Dose: 1,000 mg Furosemide (Lasix) 40 mg PO 1400 [facility] Last Admin: 10/18/17 14:08 Dose: 40 mg Furosemide (Lasix) 80 mg PO 0900 [facility] Last Admin: 10/18/17 08:58 Dose: 80 mg Glucagon (Glucagon) 1 mg IM PRN PRN PRN Reason: Hypoglycemia Dextrose/Water (D5w) 1,000 mls @ 0 mls/hr IV .Q0M PRN; As Directed PRN Reason: Hypoglycemia Loperamide HCl (Imodium) 2 mg PO PRN PRN PRN Reason: Diarrhea/Loose Stools Magnesium Chloride (Slow-Mag) 64 mg PO BID [facility] Last Admin: 10/18/17 21:17 Dose: 64 mg Metformin HCl (Glucophage Xr) 500 mg PO BID-[facility] Last Admin: 10/18/17 16:46 Dose: 500 mg Olmesartan (Benicar) 40 mg PO DAILY [facility] Last Admin: 10/18/17 08:58 Dose: 40 mg Sodium Chloride (Flush - Normal Saline) 10 ml IVF PRN PRN PRN Reason: Saline Flush
[2017-10-19] MEDS: Fish Oil 1,000 MG CAP PO SCH (09:55)
[2017-10-19] MEDS: Magnesium Chloride 64 MG TAB PO SCH (09:55)
[2017-10-19] MEDS: Ubidecarenone 50 MG CAP PO SCH (09:57)
[2017-10-19] MEDS: Furosemide 80 MG TAB PO SCH (09:57)
[2017-10-19] MEDS: Aspirin 81 mg Enteric Coated Tablet PO SCH (09:57)
[2017-10-19] MEDS: Alogliptin 6.25 MG TAB PO SCH (09:57)
[2017-10-19] MEDS: metFORMIN XR 500 MG TAB PO SCH (09:57)
[2017-10-19 12:10] VITALS: BP 107/51; TEMP 98.2
[2017-10-19] MEDS: Furosemide 40 MG TAB PO SCH (14:41)
[2017-10-19 15:02] VITALS: BMI 22.3
--- NOTE | 2017-10-19 15:53 | DIS ---
DATE OF ADMISSION: 10/13/2017 DATE OF DISCHARGE: 10/19/2017 DISCHARGE DIAGNOSES: Are as followin. Acute on chronic diastolic heart failure. 2. Bilateral pleural effusions. 3. Hypertension. 4. Diabetes. 5. Lymphoma. 6. Amyloidosis. HOSPITAL COURSE: The patient is a very pleasant 87-year-old female who initially presented to the [facility] with worsening shortness of breath. Patient had recently been diagnosed with lymphoma and had received one round of chemotherapy. Patient initially was sent by the oncologist due to worsening s hortness of breath and pulmonary edema that was noted on the chest x-ray. Patient was seen by Pulmon ology and by Cardiology for further evaluation. Patient initially was put on IV Lasix and then was c hanged to oral Lasix. The patient's hospital course was uneventful. The patient continued to improv e. Patient's family decided to go home with hospice given patient's multiple chronic comorbidities. Patient was discharged home with hospice. DISCHARGE MEDICATIONS: Claritin 10 mg daily, metformin 1000 mg b.i.d., Lasix 40 mg daily, Ambien 5 m g p.r.n., Benicar 40 mg daily, aspirin 81 mg daily, Zocor 20 mg daily, Januvia 50 mg daily, magnesium 64 mg b.i.d., and Xanax 0.25 mg at bedtime p.r.n. PHYSICAL EXAMINATION: VITAL SIGNS: Temperature of 98.2, 78, respirations 16, 96% on 1.5 liters, blood pressure 107/51. GENERAL: She is awake, alert, oriented x3, in bed with oxygen. Does not appear in distress. CARDIOVASCULAR: S1, S2 present. No murmurs, rubs or gallops. LUNGS: Clear to auscultation. No rhonchi, wheezes noted. ABDOMEN: Soft, nontender. Bowel sounds are present x2. The patient will be discharged home with hospice.
== END 2017-10-19 15:11 | disposition hospice, home (50) | DRG 291 ==
LOC: ERS 16:25 → 2NO 19:00
PROVIDERS: ADMIT Internal Medicine; ATTEND Internal Medicine
DX: I13.0 Hypertensive heart and chronic kidney disease with heart failure and stage 1 through stage 4 chronic kidney disease, or unspecified chronic kidney disease (principal); I50.33 Acute on chronic diastolic (congestive) heart failure; N17.9 Acute kidney failure, unspecified; J90 Pleural effusion, not elsewhere classified; C85.90 Non-Hodgkin lymphoma, unspecified, unspecified site; C90.00 Multiple myeloma not having achieved remission; E85.9 Amyloidosis, unspecified; Z66 Do not resuscitate; Z51.5 Encounter for palliative care; E11.22 Type 2 diabetes mellitus with diabetic chronic kidney disease; N18.3 Chronic kidney disease, stage 3 (moderate); Z79.84 Long term (current) use of oral hypoglycemic drugs; Z92.21 Personal history of antineoplastic chemotherapy; Z79.82 Long term (current) use of aspirin; R09.02 Hypoxemia; Z99.81 Dependence on supplemental oxygen; Z90.710 Acquired absence of both cervix and uterus; Z96.649 Presence of unspecified artificial hip joint; F41.9 Anxiety disorder, unspecified; E83.42 Hypomagnesemia
CPT/HCPCS: 36415; 36416; 71046; 80048; 80053; 80069; 82248; 82274; 82550; 82553; 83615; 83735; 83880; 83883; 84100; 84165; 84484; 84550; 85014; 85018; 85025; 85049; 85810; 86334; 93005; 93798; 94760; J1650; J1940; J3475; J7050

== ENCOUNTER → 2017-10-13 | Outpatient (CLI) | payer MEDICARE | LOC: BICRAD 16:55 | PROVIDERS: ATTEND Family Medicine | DX: J81.1 Chronic pulmonary edema (principal); J90 Pleural effusion, not elsewhere classified; R91.8 Other nonspecific abnormal finding of lung field | CPT/HCPCS: 71046 ==